=== PATIENT | male | born 1940 | race Caucasian/White ===

== ENCOUNTER → 2016-03-22 | Outpatient (CLI) | payer MEDICARE, OTHER | END | disposition home or self-care (01) | LOC: LAB 10:00 | PROVIDERS: ATTEND Urology | DX: C61 Malignant neoplasm of prostate (principal); R31.9 Hematuria, unspecified | CPT/HCPCS: 84153 ==

== ENCOUNTER → 2016-04-05 | Outpatient (CLI) | payer MEDICARE, OTHER | END | disposition home or self-care (01) | LOC: XYW 09:41 | PROVIDERS: ATTEND Internal Medicine | DX: I34.2 Nonrheumatic mitral (valve) stenosis (principal); I35.0 Nonrheumatic aortic (valve) stenosis; I37.1 Nonrheumatic pulmonary valve insufficiency; I07.1 Rheumatic tricuspid insufficiency; I35.1 Nonrheumatic aortic (valve) insufficiency | CPT/HCPCS: 93306 ==

== ENCOUNTER → 2016-04-26 | Outpatient (CLI) | payer MEDICARE, OTHER ==
[2016-04-26 12:31] LABS: Basophils # (auto) 0 uL; Basophils % (auto) 0.5 % (0.0-2.0); Eosinophils # (auto) 0.3 uL; Eosinophils % (auto) 3.1 % (0.0-7.0); Hemoglobin 13.7 g/dL (13.5-17.5); Lymphocytes # (auto) 3.1 uL; Lymphocytes % (auto) 37.3 % (10.0-50.0); Mean Corpuscular Hemoglobin 27.4 pg (28.0-32.0); Mean Corpuscular Hgb Conc. 31.2 g/dL (32.0-36.0); Mean Corpuscular Volume 87.7 fL (80.0-100.0); Mean Platelet Volume 7.6 fL (7.4-10.4); Monocytes # (auto) 0.6 uL; Monocytes % (auto) 7.2 % (0.0-12.0); Neutrophils # (auto) 4.4 uL; Neutrophils % (auto) 51.9 % (37.0-80.0); Platelet Count (auto) 362 10^3/uL (140-450); Red Cell Distribution Width 14.7 % (11.6-16.0); White Blood Cell 8.4 10^3/uL (4.4-10.8)
[2016-04-26 12:38] LABS: INR 1.03 (0.9-1.15); Prothrombin Time 10.6 sec (9.37-12.3)
[2016-04-26 13:41] LABS: Albumin 3.6 g/dL (3.4-5.0); BUN/Creatinine Ratio 13.5; Bilirubin, Total 0.8 mg/dL (0.2-1.0); Potassium 4.6 mmol/L (3.5-5.1); Total Protein 7.5 g/dL (6.4-8.2)
== END | disposition home or self-care (01) ==
LOC: LAB 10:58
PROVIDERS: ATTEND Internal Medicine Cardiovascular Disease
DX: Z01.812 Encounter for preprocedural laboratory examination (principal); I20.9 Angina pectoris, unspecified
CPT/HCPCS: 36415; 80053; 85025; 85610; 85730

== ENCOUNTER 2016-05-03 11:44 | Day surgery (SDC) | payer MEDICARE, OTHER ==
[2016-05-03] MEDS ORDERED: fentaNYL CITRATE 100 MCG/2 ML VL ONE (12:37)
[2016-05-03] MEDS ORDERED: MIDAZOLAM HCL 1MG/1ML-2 ML VIAL ONE (12:37)
[2016-05-03] MEDS ORDERED: ANGIOMAX 250 MG VIAL IV ONE (12:38)
[2016-05-03] MEDS ORDERED: SODIUM CHL 0.9% 0 ML ONE (12:38)
[2016-05-03] MEDS ORDERED: IODIXANOL 320MG/ML 100ML BTL IV ONE (12:44)
[2016-05-03] MEDS ORDERED: LIDOCAINE 2%HCL (LOCAL ANESTH.) INJ 20ML MDV ONE (12:44)
[2016-05-03] MEDS ORDERED: ASPI325T4 PO ×2 (14:33)
[2016-05-03] MEDS ORDERED: GLIP-115 PO ×2 (14:34)
[2016-05-03] MEDS ORDERED: OXYB10TA13 PO (14:34)
[2016-05-03] MEDS ORDERED: NIAC500C3 OR (14:37)
[2016-05-03] MEDS ORDERED: PRAV20TA3 PO ×2 (14:39)
[2016-05-03] MEDS ORDERED: NITROGLYCERIN 0.4 MG SL TAB SL ONE (14:44)
[2016-05-03] MEDS ORDERED: INSUINJ IJ (14:52)
[2016-05-03] MEDS ORDERED: METF-312 PO (14:56)
[2016-05-03] MEDS ORDERED: NITR400A5 TL ×2 (15:32)
[2016-05-03] MEDS ORDERED: NITR0.2D12 TD ×2 (15:33)
[2016-05-19] MEDS ORDERED: METO-169 PO (10:26)
== END 2016-05-03 16:18 | disposition home or self-care (01) ==
LOC: CATH 11:44
PROVIDERS: ATTEND Internal Medicine Cardiovascular Disease
DX: I25.10 Atherosclerotic heart disease of native coronary artery without angina pectoris (principal); I70.90 Unspecified atherosclerosis; I77.1 Stricture of artery
CPT/HCPCS: 36600; 82805; 93458; 93886; C1760; C1894; J1644; J2250; J3010; J7030; Q9967; 99152

== ENCOUNTER → 2016-05-19 | Outpatient (CLI) | payer MEDICARE, OTHER ==
[~2016-05-19] MED LIST: ASPI325T4 PO; GLIP-115 PO; INSUINJ IJ; METO-169 PO; NIAC500C3 OR; NITR0.2D12 TD; NITR400A5 TL; OXYB10TA13 PO; PRAV20TA3 PO
[2016-05-19 10:45] LABS: Urine RBC None Seen /hpf (0 - 3)
[2016-05-19 10:59] LABS: Basophils # (auto) 0 uL; Basophils % (auto) 0.6 % (0.0-2.0); Eosinophils # (auto) 0.2 uL; Eosinophils % (auto) 2.7 % (0.0-7.0); Hematocrit 41.4 % (41.0-53.0); Hemoglobin 13.8 g/dL (13.5-17.5); Lymphocytes # (auto) 2.2 uL; Lymphocytes % (auto) 33.3 % (10.0-50.0); Mean Corpuscular Hemoglobin 28.6 pg (28.0-32.0); Mean Corpuscular Hgb Conc. 33.3 g/dL (32.0-36.0); Mean Platelet Volume 8.1 fL (7.4-10.4); Monocytes # (auto) 0.6 uL; Monocytes % (auto) 9.3 % (0.0-12.0); Neutrophils # (auto) 3.7 uL; Neutrophils % (auto) 54.1 % (37.0-80.0); Platelet Count (auto) 322 10^3/uL (140-450); White Blood Cell 6.8 10^3/uL (4.4-10.8)
[2016-05-19 11:06] LABS: INR 1.03 (0.9-1.15); Partial Thromboplastin Time 25.4 sec (22.64-33.71); Prothrombin Time 10.6 sec (9.37-12.3)
[2016-05-19 11:09] LABS: Urine Bilirubin Negative (Negative); Urine Blood Negative /uL (Negative); Urine Color Yellow (Yellow); Urine Glucose Normal (Normal); Urine Hyaline Cast FEW /lpf (0 - 2); Urine Ketone Negative (Negative); Urine Mucus FEW (None Seen); Urine Nitrite Negative (Negative); Urine pH 7.5 (5.0-8.0)
[2016-05-19 11:19] LABS: Albumin 3.4 g/dL (3.4-5.0); BUN/Creatinine Ratio 10.5; Bilirubin, Total 1.2 mg/dL (0.2-1.0); Calcium 9.5 mg/dL (8.5-10.1); Potassium 4.4 mmol/L (3.5-5.1); Total Protein 7.2 g/dL (6.4-8.2)
== END | disposition home or self-care (01) ==
LOC: LAB 10:28
PROVIDERS: ATTEND Specialist
DX: I25.10 Atherosclerotic heart disease of native coronary artery without angina pectoris (principal); Z01.810 Encounter for preprocedural cardiovascular examination
CPT/HCPCS: 80053; 81001; 85025; 85610; 85730; 86850; 86900; 86901; 86920

== ENCOUNTER 2016-05-22 06:16 | Inpatient (IN) | payer MEDICARE, OTHER ==
[~2016-05-22] VITALS: Ht 188 cm; Wt 108.5 kg
[2016-05-22] VITALS (37 sets, daily range): BP systolic 29–133; BP diastolic 14–64
[~2016-05-22 06:16] MED LIST changes: -OXYB10TA13 PO
[2016-05-22] MEDS ORDERED: CALCIUM CHLOR(10%) 100MG/ML 10ML SYRINGE IV ONE ×2 (06:31→17:34)
[2016-05-22] MEDS ORDERED: ePHEDrine SULFATE 50 MG/ML AMP ONE (06:43)
[2016-05-22] MEDS ORDERED: PHENYLEPHRINE IV 250 ML IV ONE ×2 (06:44→10:19)
[2016-05-22] MEDS ORDERED: EPINEPHrine HCL 250 ML IV ONE ×2 (06:44→10:27)
[2016-05-22] MEDS ORDERED: VASOPRESSIN IV ONE (06:48)
[2016-05-22] MEDS ORDERED: PAPAVERINE HCL 60 MG/2 ML 2ML VIAL ONE (06:49)
[2016-05-22] MEDS ORDERED: ceFAZolin 1GM VL ONE ×3 (06:49→07:08)
[2016-05-22] MEDS ORDERED: HEPARIN 1,000 UNITS/ml 1ML VIAL ONE (06:50)
[2016-05-22] MEDS ORDERED: NITROGLYCERIN 50MG/250ML 250 ML IV ONE ×2 (06:53→10:26)
[2016-05-22] MEDS ORDERED: HYDROmorphone HCL 2 MG/ML VL ONE ×2 (06:56→09:17)
[2016-05-22] MEDS ORDERED: ROCURONIUM 10MG/ML 10ML VIAL IV ONE ×2 (06:56→09:18)
[2016-05-22] MEDS ORDERED: MIDAZOLAM HCL 1MG/1ML-2 ML VIAL ONE ×2 (06:56→10:47)
[2016-05-22] MEDS ORDERED: ETOMIDATE (2MG/ML) 20ML VIAL IV ONE (07:01)
[2016-05-22] MEDS ORDERED: SODIUM BICARBONATE 8.4 % INJ 50ML VIAL IV ONE ×2 (07:03→17:34)
[2016-05-22] MEDS ORDERED: LIDOCAINE 2%HCL (LOCAL ANESTH.) INJ 20ML MDV ONE (07:03)
[2016-05-22] MEDS ORDERED: DESMOPRESSIN ACET 4 MCG/1 ML AMPULE ONE ×2 (07:15→12:11)
[2016-05-22] MEDS ORDERED: SUCCINYLCHOLINE CHLORIDE 20 MG/ML 10ML VIAL IV ONE (07:15)
[2016-05-22] MEDS ORDERED: VANCOMYCIN HCL 1000 MG VL ONE (07:27)
[2016-05-22] MEDS ORDERED: ceFAZolin 1GM/50ML D5W 100 ML IV ONE (07:27)
[2016-05-22] MEDS ORDERED: ALBUMIN 25% 400 ML IV ONE (07:34)
[2016-05-22] MEDS ORDERED: PLASMA-LYTE A pH7.4 6,000 ML INJ ONE (07:51)
[2016-05-22] MEDS ORDERED: AMINOCAPROIC ACID 10 GM in SODIUM CHL 0.9% 100 ML IV ONE (08:30)
[2016-05-22] MEDS ORDERED: AMINOCAPROIC ACID 5 GM in SODIUM CHL 0.9% 250 ML IV ONE (08:30)
[2016-05-22] MEDS ORDERED: InsuLIN R (HUMAN) 100 UNITS in SODIUM CHL 0.9% 99 ML IV ONE (08:30)
[2016-05-22] MEDS ORDERED: HEPARIN 30000 UNITS in SODIUM CHLORIDE 0.9% 1000 ML IV ONE (08:30)
[2016-05-22] MEDS ORDERED: AMIODARONE HCL (50 MG/ ML) 3 ML VIAL IV ONE ×2 (10:15→10:19)
[2016-05-22] MEDS ORDERED: MILRINONE 20 ML ONE (10:15)
[2016-05-22] MEDS ORDERED: ALBUMIN 5% 750 ML IV ONE (10:16)
[2016-05-22] MEDS ORDERED: PROTAMINE SULFATE 250 MG/25 ML VL IV ONE (10:16)
[2016-05-22] MEDS ORDERED: MAGNESIUM SULFATE 1GM/100ML 200 ML IV ONE (10:20)
[2016-05-22] MEDS ORDERED: POTASSIUM CHL 20MEQ/100ML 200 ML IV ONE (10:20)
[2016-05-22] MEDS ORDERED: VASOPRESSIN 20 UNIT/ML ONE (10:20)
[2016-05-22] MEDS ORDERED: SODIUM BICARBONATE 8.4% INJ 50ML SYRINGE ONE (10:20)
[2016-05-22] MEDS ORDERED: NOREPINEPHRINE BITARTRATE 250 ML IV ONE ×2 (10:20→14:32)
[2016-05-22] MEDS ORDERED: DOBUTamine 1000MCG/ML 250 ML IV ONE (10:25)
[2016-05-22] MEDS ORDERED: DOPamine 1600MCG/ML 250 ML IV ONE (10:25)
[2016-05-22] MEDS ORDERED: PROPOFOL 100 ML IV ONE (10:25)
[2016-05-22] MEDS ORDERED: NICARDIPINE 25MG/250ML BAG KIT 250 ML IV ONE (10:26)
[2016-05-22] MEDS ORDERED: NEOMYCIN-BACITRACIN-POLYM 15GM TOP OINT TOP ONE (11:04)
[2016-05-22] MEDS ORDERED: NOREPINEPHRINE BITARTRATE 250 ML IV SCH (15:59)
[2016-05-22] MEDS: NICARDIPINE 25MG/250ML BAG KIT 250 ML IV SCH ×2 (15:59→20:59)
[2016-05-22] MEDS ORDERED: NITROGLYCERIN 50MG/250ML 250 ML IV SCH (15:59)
[2016-05-22] MEDS: MILRINONE 20MG/100ML 100 ML IV SCH (15:59)
[2016-05-22] MEDS ORDERED: PHENYLEPHRINE IV 250 ML IV SCH (15:59)
[2016-05-22] MEDS ORDERED: INSULIN DRIP 100 UNIT/100ML 100 ML IV SCH (15:59)
[2016-05-22] MEDS ORDERED: SODIUM CHLORIDE 0.9% 200 ML IV PRN (15:59)
[2016-05-22] MEDS ORDERED: SODIUM BICARBONATE 8.4% INJ 50ML SYRINGE IV PRN (16:00)
[2016-05-22] MEDS ORDERED: ONDANSETRON HCL 4 MG/2 ML VIAL IV PRN (16:00)
[2016-05-22] MEDS ORDERED: AMIODARONE HCL 150 MG in D5W 5% 100 ML IV ONE (16:00)
[2016-05-22] MEDS ORDERED: MORPHINE SULFATE 4 MG/ML SYRG IV PRN (16:00)
[2016-05-22] MEDS ORDERED: DEXTROSE (50%) 50ML SYRG IV PRN (16:00)
[2016-05-22] MEDS ORDERED: MAGNESIUM SULFATE 1GM/100ML 100 ML IV PRN (16:00)
[2016-05-22] MEDS ORDERED: POTASSIUM CHL 20MEQ/100ML 100 ML IV PRN (16:00)
[2016-05-22] MEDS ORDERED: AMIODARONE HCL 900 MG in DEXTROSE 500 ML IV SCH (16:09)
[2016-05-22] MEDS ORDERED: fentaNYL CITRATE 100 MCG/2 ML VL ONE (16:41)
[2016-05-22] MEDS: PROPOFOL 100 ML IV SCH ×2 (16:52→21:30)
[2016-05-22] MEDS: SODIUM CHLORIDE 0.9% 500 ML IV SCH (17:00)
[2016-05-22] MEDS: ACCU-CHEK COMFORT CURVE STRIP VI SCH ×8 (17:00→23:59)
[2016-05-22] MEDS: SODIUM CHLORIDE 0.9% 1,000 ML IV SCH (17:00)
[2016-05-22 17:32] LABS: Basophils # (auto) 0 uL; Basophils % (auto) 0.1 % (0.0-2.0); Eosinophils # (auto) 0 uL; Eosinophils % (auto) 0.2 % (0.0-7.0); Hematocrit 34.7 % (41.0-53.0); Hemoglobin 11.5 g/dL (13.5-17.5); Lymphocytes # (auto) 0.7 uL; Lymphocytes % (auto) 4.4 % (10.0-50.0); Mean Corpuscular Hemoglobin 28.6 pg (28.0-32.0); Mean Corpuscular Volume 86.5 fL (80.0-100.0); Mean Platelet Volume 7.7 fL (7.4-10.4); Monocytes # (auto) 0.7 uL; Monocytes % (auto) 4.4 % (0.0-12.0); Neutrophils # (auto) 13.4 uL; Neutrophils % (auto) 90.9 % (37.0-80.0); Platelet Count (auto) 259 10^3/uL (140-450); Red Cell Distribution Width 14.6 % (11.6-16.0); White Blood Cell 14.8 10^3/uL (4.4-10.8)
[2016-05-22] MEDS ORDERED: MAGNESIUM SULF 50% 40 MEQ/10 ML VL IV ONE (17:34)
[2016-05-22] MEDS ORDERED: AMINOCAPROIC ACID 5 GM/20 ML VL IV ONE (17:34)
[2016-05-22] MEDS ORDERED: MANNITOL 20% SOLN 100 gm/500ml BAG IV ONE (17:34)
[2016-05-22] MEDS ORDERED: PHENYLEPHRINE HCL 10 MG/ML VL IV ONE (17:34)
[2016-05-22] MEDS ORDERED: POTASSIUM CHL 2MEQ/ML 20ML IV ONE (17:34)
[2016-05-22] MEDS ORDERED: LIDOCAINE HCL 100 MG/5ML (2%) SYRG INJ IV ONE (17:34)
[2016-05-22] MEDS ORDERED: DEXAMETHASONE SODIUM PHOSP 120 MG/30ml VIAL IV ONE (17:34)
[2016-05-22] MEDS ORDERED: ADENOSINE 6 MG/2 ML INJ IV ONE (17:34)
[2016-05-22 17:59] LABS: Albumin 3.7 g/dL (3.4-5.0); BUN/Creatinine Ratio 11.3; Calcium 8.2 mg/dL (8.5-10.1); Magnesium 3.1 mg/dL (1.6-2.6); Potassium 3.9 mmol/L (3.5-5.1)
[2016-05-22] MEDS: ALBUMIN 5% 250 ML IV PRN ×2 (18:00→19:37)
[2016-05-22] MEDS: ceFAZolin 1GM 2 GM in D5W 5% 100 ML IV SCH (18:00)
[2016-05-22] MEDS: ACETAMINOPHEN IV 100 ML IV SCH ×2 (18:00→23:57)
[2016-05-22 18:01] LABS: Bilirubin, Total 1.9 mg/dL (0.2-1.0); Total Protein 6.1 g/dL (6.4-8.2)
[2016-05-22 18:46] LABS: Partial Thromboplastin Time 32.7 sec (22.64-33.71)
[2016-05-22] MEDS: PHENYLEPHRINE IV 250 ML IV SCH ×2 (18:48→22:53)
[2016-05-22] MEDS: VANCOMYCIN 1GM/250ML D5W 250 ML IV SCH (18:57)
[2016-05-22 19:05] LABS: INR 1.2 (0.9-1.15); Prothrombin Time 12.4 sec (9.37-12.3)
[2016-05-22] MEDS: AMIODARONE HCL 900 MG in DEXTROSE 500 ML IV SCH (22:09)
[2016-05-22] MEDS: CHLORHEXIDINE 0.12% ORAL rinse 473ML MT SCH (22:23)
[2016-05-22 22:37] LABS: Basophils # (auto) 0 uL; Eosinophils # (auto) 0 uL; Eosinophils % (auto) 0.1 % (0.0-7.0); Hematocrit 31.4 % (41.0-53.0); Hemoglobin 10.5 g/dL (13.5-17.5); Lymphocytes # (auto) 0.9 uL; Lymphocytes % (auto) 7.2 % (10.0-50.0); Mean Corpuscular Hemoglobin 28.8 pg (28.0-32.0); Mean Corpuscular Hgb Conc. 33.4 g/dL (32.0-36.0); Mean Corpuscular Volume 86.3 fL (80.0-100.0); Mean Platelet Volume 8.1 fL (7.4-10.4); Monocytes # (auto) 0.6 uL; Monocytes % (auto) 4.6 % (0.0-12.0); Neutrophils # (auto) 11.4 uL; Neutrophils % (auto) 88.1 % (37.0-80.0); Platelet Count (auto) 234 10^3/uL (140-450); Red Cell Distribution Width 14.8 % (11.6-16.0); White Blood Cell 12.9 10^3/uL (4.4-10.8)
[2016-05-22 22:48] LABS: Calcium 7.9 mg/dL (8.5-10.1); Magnesium 2.8 mg/dL (1.6-2.6); Potassium 4.6 mmol/L (3.5-5.1)
[2016-05-23] VITALS (99 sets, daily range): BP systolic 24–167; BP diastolic 11–167
[2016-05-23] MEDS: ceFAZolin 1GM 2 GM in D5W 5% 100 ML IV SCH ×3 (00:13→16:13)
[2016-05-23] MEDS: ACCU-CHEK COMFORT CURVE STRIP VI SCH ×14 (01:00→14:08)
[2016-05-23] MEDS: MILRINONE 20MG/100ML 100 ML IV SCH ×2 (01:06→10:13)
[2016-05-23] MEDS: NICARDIPINE 25MG/250ML BAG KIT 250 ML IV SCH ×3 (01:59→11:59)
[2016-05-23] MEDS: SODIUM CHLORIDE 0.9% 1,000 ML IV SCH ×3 (04:00→13:00)
[2016-05-23 05:00] LABS: Basophils # (auto) 0 uL; Eosinophils # (auto) 0 uL; Hematocrit 29.5 % (41.0-53.0); Hemoglobin 9.7 g/dL (13.5-17.5); Lymphocytes # (auto) 1.2 uL; Lymphocytes % (auto) 9.1 % (10.0-50.0); Mean Corpuscular Hemoglobin 28.8 pg (28.0-32.0); Mean Corpuscular Volume 87.3 fL (80.0-100.0); Mean Platelet Volume 8.2 fL (7.4-10.4); Monocytes # (auto) 0.7 uL; Monocytes % (auto) 5.9 % (0.0-12.0); Neutrophils # (auto) 10.7 uL; Platelet Count (auto) 220 10^3/uL (140-450); Red Cell Distribution Width 15.1 % (11.6-16.0); White Blood Cell 12.6 10^3/uL (4.4-10.8)
[2016-05-23] MEDS: PHENYLEPHRINE IV 250 ML IV SCH ×3 (05:15→12:47)
[2016-05-23] MEDS: PROPOFOL 100 ML IV SCH ×2 (05:15→09:30)
[2016-05-23 05:35] LABS: BUN/Creatinine Ratio 17.2; Calcium 7.8 mg/dL (8.5-10.1); Magnesium 2.7 mg/dL (1.6-2.6)
[2016-05-23] MEDS: ACETAMINOPHEN IV 100 ML IV SCH ×2 (06:05→11:27)
[2016-05-23] MEDS: MORPHINE SULFATE 4 MG/ML SYRG IV PRN ×5 (06:32→21:34)
[2016-05-23] MEDS: VANCOMYCIN 1GM/250ML D5W 250 ML IV SCH ×2 (06:48→18:16)
[2016-05-23] MEDS ORDERED: CALCIUM GLUC 4.65 MEQ/10ML 4.65 MEQ in SODIUM CHL 0.9% 50 ML IV ONE (07:00)
[2016-05-23 09:41] LABS: Phosphorus 2.3 mg/dL (2.5-4.90)
[2016-05-23] MEDS: CHLORHEXIDINE 0.12% ORAL rinse 473ML MT SCH ×2 (09:49→22:00)
[2016-05-23] MEDS ORDERED: PANTOPRAZOLE SODIUM 40 MG/10 ML VIAL IV SCH (10:00)
[2016-05-23] MEDS ORDERED: ALBUMIN 25% 50 ML IV ONE ×3 (11:36→22:00)
[2016-05-23] MEDS ORDERED: POTASSIUM CHL 20MEQ/100ML 100 ML IV PRN (11:45)
[2016-05-23] MEDS ORDERED: MORPHINE SULF INJ 2 MG/ML SYRINGE 1ML IV PRN (11:45)
[2016-05-23] MEDS ORDERED: POTASSIUM CHL 10% (20 MEQ/15ML) ORAL SOLN PO PRN (11:45)
[2016-05-23] MEDS ORDERED: DEXTROSE (50%) 50ML SYRG IV PRN (11:45)
[2016-05-23] MEDS ORDERED: SENNA 8.6 MG TAB PO PRN (11:45)
[2016-05-23] MEDS ORDERED: ALBUMIN 5% 250 ML IV ONE (11:45)
[2016-05-23 11:51] LABS: Basophils # (auto) 0 uL; Basophils % (auto) 0.2 % (0.0-2.0); Eosinophils # (auto) 0 uL; Hematocrit 29.2 % (41.0-53.0); Hemoglobin 9.6 g/dL (13.5-17.5); Lymphocytes # (auto) 1.3 uL; Lymphocytes % (auto) 11.8 % (10.0-50.0); Mean Corpuscular Hemoglobin 28.6 pg (28.0-32.0); Mean Corpuscular Hgb Conc. 32.9 g/dL (32.0-36.0); Mean Corpuscular Volume 87.1 fL (80.0-100.0); Mean Platelet Volume 8.4 fL (7.4-10.4); Monocytes # (auto) 1.1 uL; Monocytes % (auto) 10.5 % (0.0-12.0); Neutrophils # (auto) 8.3 uL; Neutrophils % (auto) 77.5 % (37.0-80.0); Platelet Count (auto) 192 10^3/uL (140-450); Red Cell Distribution Width 15.3 % (11.6-16.0); White Blood Cell 10.7 10^3/uL (4.4-10.8)
[2016-05-23] MEDS ORDERED: PROPRANOLOL HCL 1 MG/ML VIAL IV PRN (12:00)
[2016-05-23] MEDS: Boost Glucose Control 8 Ounces PO SCH ×2 (12:00→18:00)
[2016-05-23] MEDS ORDERED: fentaNYL CITRATE 100 MCG/2 ML VL IV PRN (12:30)
[2016-05-23] MEDS ORDERED: INSLISPI SC (13:20)
[2016-05-23 13:22] LABS: Albumin 3.6 g/dL (3.4-5.0); BUN/Creatinine Ratio 18.5; Calcium 8.3 mg/dL (8.5-10.1); Magnesium 2.6 mg/dL (1.6-2.6); Phosphorus 3.5 mg/dL (2.5-4.90); Potassium 4.6 mmol/L (3.5-5.1); Total Protein 5.9 g/dL (6.4-8.2)
[2016-05-23] MEDS ORDERED: LISI-646 PO (13:31)
[2016-05-23] MEDS ORDERED: OXYB15TA12 PO (13:31)
[2016-05-23] MEDS ORDERED: METF-316 PO (13:31)
[2016-05-23] MEDS ORDERED: OXYB10TA13 PO (13:32)
[2016-05-23] MEDS ORDERED: METO25TA5 PO (13:33)
[2016-05-23] MEDS ORDERED: NIAC500C3 PO (13:34)
[2016-05-23] MEDS: InsuLIN REG 1unit/0.01ml Soln (100units/ml) SC SCH ×3 (14:09→21:46)
[2016-05-23] MEDS: METOCLOPRAMIDE HCL 5MG/ml INJ 2ml VIAL IV PRN (15:08)
[2016-05-23] MEDS: SODIUM CHLORIDE 0.9% 500 ML IV SCH (16:13)
[2016-05-23 16:19] LABS: Potassium 4.6 mmol/L (3.5-5.1)
[2016-05-23 16:21] LABS: Magnesium 2.6 mg/dL (1.6-2.6)
[2016-05-23] MEDS ORDERED: glipiZIDE 5 MG TAB PO SCH (18:00)
[2016-05-23] MEDS ORDERED: FUROSEMIDE 20 MG/2 ML VIAL IV PRN (18:15)
[2016-05-23] MEDS: FUROSEMIDE 40 MG TAB PO SCH (18:17)
[2016-05-23] MEDS: IPRATROPIUM BROM 0.5 MG/2.5ML INH SOL NEB SCH ×3 (18:47→22:14)
[2016-05-23] MEDS: HYDROcodone-ACET 7.5/325MG TAB PO PRN (20:50)
[2016-05-23 21:03] LABS: Basophils # (auto) 0 uL; Basophils % (auto) 0.2 % (0.0-2.0); Eosinophils # (auto) 0 uL; Hematocrit 28.6 % (41.0-53.0); Hemoglobin 9.4 g/dL (13.5-17.5); Lymphocytes # (auto) 1.4 uL; Lymphocytes % (auto) 12.7 % (10.0-50.0); Mean Corpuscular Hemoglobin 28.7 pg (28.0-32.0); Mean Corpuscular Hgb Conc. 32.7 g/dL (32.0-36.0); Mean Corpuscular Volume 87.7 fL (80.0-100.0); Mean Platelet Volume 8.4 fL (7.4-10.4); Monocytes # (auto) 0.8 uL; Monocytes % (auto) 7.3 % (0.0-12.0); Neutrophils # (auto) 8.5 uL; Neutrophils % (auto) 79.8 % (37.0-80.0); Platelet Count (auto) 187 10^3/uL (140-450); White Blood Cell 10.6 10^3/uL (4.4-10.8)
[2016-05-23 21:12] LABS: Albumin 3.7 g/dL (3.4-5.0); Calcium 7.9 mg/dL (8.5-10.1); Magnesium 2.4 mg/dL (1.6-2.6); Potassium 4.8 mmol/L (3.5-5.1)
[2016-05-23 21:14] LABS: BUN/Creatinine Ratio 19.3
[2016-05-23 21:16] LABS: Phosphorus 3.4 mg/dL (2.5-4.90); Total Protein 5.9 g/dL (6.4-8.2)
[2016-05-23] MEDS: ASCORBIC ACID 500 MG TAB PO SCH (21:34)
[2016-05-23] MEDS: DOCUSATE SOD 100 MG CAP PO SCH (21:35)
[2016-05-23] MEDS: ATORVASTATIN 20 MG TAB PO SCH (21:35)
[2016-05-23] MEDS ORDERED: METOPROLOL TARTRATE 25 MG TAB PO SCH ×2 (22:00)
[2016-05-23] MEDS: AMIODARONE HCL 900 MG in DEXTROSE 500 ML IV SCH (22:09)
[2016-05-24] VITALS (96 sets, daily range): BP systolic 83–139; BP diastolic 41–96
[2016-05-24] MEDS: ceFAZolin 1GM 2 GM in D5W 5% 100 ML IV SCH ×2 (00:04→09:00)
[2016-05-24] MEDS: MORPHINE SULFATE 4 MG/ML SYRG IV PRN (01:06)
[2016-05-24] MEDS: IPRATROPIUM BROM 0.5 MG/2.5ML INH SOL NEB SCH ×6 (02:00→22:07)
[2016-05-24] MEDS: InsuLIN REG 1unit/0.01ml Soln (100units/ml) SC SCH ×7 (02:31→23:15)
[2016-05-24] MEDS: HYDROcodone-ACET 7.5/325MG TAB PO PRN ×2 (02:49→23:40)
[2016-05-24] MEDS: SODIUM CHLORIDE 0.9% 1,000 ML IV SCH ×2 (05:19→16:00)
[2016-05-24 05:59] LABS: Basophils # (auto) 0 uL; Basophils % (auto) 0.1 % (0.0-2.0); Eosinophils # (auto) 0 uL; Hematocrit 27.3 % (41.0-53.0); Hemoglobin 8.9 g/dL (13.5-17.5); Lymphocytes # (auto) 1.8 uL; Lymphocytes % (auto) 15.5 % (10.0-50.0); Mean Corpuscular Hemoglobin 28.6 pg (28.0-32.0); Mean Corpuscular Hgb Conc. 32.6 g/dL (32.0-36.0); Mean Corpuscular Volume 87.5 fL (80.0-100.0); Mean Platelet Volume 8.6 fL (7.4-10.4); Monocytes % (auto) 8.5 % (0.0-12.0); Neutrophils # (auto) 8.8 uL; Neutrophils % (auto) 75.9 % (37.0-80.0); Platelet Count (auto) 172 10^3/uL (140-450); White Blood Cell 11.6 10^3/uL (4.4-10.8)
[2016-05-24] MEDS: FUROSEMIDE 40 MG TAB PO SCH ×2 (06:00→18:00)
[2016-05-24 06:20] LABS: Albumin 3.6 g/dL (3.4-5.0); Calcium 7.7 mg/dL (8.5-10.1); Magnesium 2.6 mg/dL (1.6-2.6); Potassium 5.2 mmol/L (3.5-5.1); Total Protein 5.9 g/dL (6.4-8.2)
[2016-05-24] MEDS: VANCOMYCIN 1GM/250ML D5W 250 ML IV SCH (06:52)
[2016-05-24] MEDS: Boost Glucose Control 8 Ounces PO SCH ×3 (10:07→18:00)
[2016-05-24] MEDS: ASCORBIC ACID 500 MG TAB PO SCH ×2 (10:08→23:00)
[2016-05-24] MEDS: POTASSIUM CHL 20 Meq TABLET PO SCH (10:08)
[2016-05-24] MEDS: CHLORHEXIDINE 0.12% ORAL rinse 473ML MT SCH ×2 (10:08→22:00)
[2016-05-24] MEDS: DOCUSATE SOD 100 MG CAP PO SCH ×2 (10:08→22:00)
[2016-05-24] MEDS: PANTOPRAZOLE SODIUM 40 MG/10 ML VIAL IV SCH (10:08)
[2016-05-24] MEDS: ASPirin 81 mg TAB PO SCH (10:17)
[2016-05-24] MEDS: glipiZIDE 5 MG TAB PO SCH (10:17)
[2016-05-24] MEDS: NITROGLYCERIN 0.4MG/HR TOPICAL PATCH TD SCH (10:18)
[2016-05-24] MEDS ORDERED: CALCIUM GLUC 4.65 MEQ/10ML 4.65 MEQ in SODIUM CHL 0.9% 50 ML IV ONE (12:45)
[2016-05-24] MEDS: ACCU-CHEK COMFORT CURVE STRIP VI SCH ×3 (13:49→20:20)
[2016-05-24] MEDS: AMIODARONE HCL 900 MG in DEXTROSE 500 ML IV SCH (16:30)
[2016-05-24 17:09] LABS: Potassium 5.3 mmol/L (3.5-5.1)
[2016-05-24 17:11] LABS: Magnesium 2.5 mg/dL (1.6-2.6)
[2016-05-24] MEDS: SODIUM CHLORIDE 0.9% 500 ML IV SCH (18:36)
[2016-05-24] MEDS ORDERED: AMIODARONE HCL 150 MG in D5W 5% 100 ML IV ONE (19:00)
[2016-05-24] MEDS ORDERED: AMIODARONE HCL 900 MG in DEXTROSE 500 ML IV SCH (19:00)
[2016-05-24] MEDS: METOCLOPRAMIDE HCL 5MG/ml INJ 2ml VIAL IV PRN (22:54)
[2016-05-24] MEDS: MORPHINE SULF INJ 2 MG/ML SYRINGE 1ML IV PRN (22:57)
[2016-05-24] MEDS: ATORVASTATIN 20 MG TAB PO SCH (23:00)
[2016-05-24] MEDS: INSULIN DETEMIR(LEVEMIR) 1unit/0.01ml Soln (100units/ml) SC SCH (23:00)
[2016-05-25] VITALS (93 sets, daily range): BP systolic 77–122; BP diastolic 53–85
[2016-05-25] MEDS ORDERED: AMIODARONE HCL 900 MG in DEXTROSE 500 ML IV SCH (01:00)
[2016-05-25] MEDS: HYDROcodone-ACET 7.5/325MG TAB PO PRN (04:37)
[2016-05-25] MEDS: FUROSEMIDE 40 MG TAB PO SCH ×2 (04:37→19:00)
[2016-05-25 05:15] LABS: Basophils # (auto) 0 uL; Basophils % (auto) 0.2 % (0.0-2.0); Eosinophils # (auto) 0 uL; Hematocrit 30.9 % (41.0-53.0); Hemoglobin 10.5 g/dL (13.5-17.5); Lymphocytes % (auto) 13.6 % (10.0-50.0); Mean Corpuscular Hemoglobin 28.5 pg (28.0-32.0); Mean Corpuscular Hgb Conc. 33.9 g/dL (32.0-36.0); Mean Corpuscular Volume 84.1 fL (80.0-100.0); Mean Platelet Volume 9.4 fL (7.4-10.4); Neutrophils # (auto) 11.7 uL; Neutrophils % (auto) 79.2 % (37.0-80.0); Platelet Count (auto) 145 10^3/uL (140-450); Red Cell Distribution Width 16.8 % (11.6-16.0); White Blood Cell 14.8 10^3/uL (4.4-10.8)
[2016-05-25 05:30] LABS: Albumin 3.3 g/dL (3.4-5.0); BUN/Creatinine Ratio 36.8; Bilirubin, Total 2.6 mg/dL (0.2-1.0); Calcium 7.6 mg/dL (8.5-10.1); Magnesium 2.6 mg/dL (1.6-2.6); Potassium 4.9 mmol/L (3.5-5.1); Total Protein 5.8 g/dL (6.4-8.2)
[2016-05-25] MEDS: ACCU-CHEK COMFORT CURVE STRIP VI SCH ×7 (05:50→23:39)
[2016-05-25] MEDS: InsuLIN REG 1unit/0.01ml Soln (100units/ml) SC SCH ×6 (05:55→23:41)
[2016-05-25] MEDS: MORPHINE SULF INJ 2 MG/ML SYRINGE 1ML IV PRN (06:14)
[2016-05-25] MEDS: INSULIN DETEMIR(LEVEMIR) 1unit/0.01ml Soln (100units/ml) SC SCH ×2 (06:42→21:29)
[2016-05-25] MEDS ORDERED: CALCIUM GLUC 4.65 MEQ/10ML 4.65 MEQ in SODIUM CHL 0.9% 50 ML IV ONE (06:45)
[2016-05-25] MEDS: IPRATROPIUM BROM 0.5 MG/2.5ML INH SOL NEB SCH ×4 (06:52→22:07)
[2016-05-25] MEDS: SODIUM CHLORIDE 0.9% 1,000 ML IV SCH (07:59)
[2016-05-25] MEDS: Boost Glucose Control 8 Ounces PO SCH ×3 (08:00→18:00)
[2016-05-25] MEDS ORDERED: ceFAZolin 1GM/50ML D5W 50 ML IV ONE (09:30)
[2016-05-25] MEDS ORDERED: VANCOMYCIN 1GM/250ML D5W 250 ML IV ONE (09:30)
[2016-05-25] MEDS ORDERED: VANCOMYCIN HCL 1000 MG VL IR ONE (09:30)
[2016-05-25] MEDS: POTASSIUM CHL 20 Meq TABLET PO SCH (10:00)
[2016-05-25] MEDS: ASCORBIC ACID 500 MG TAB PO SCH ×2 (10:00→21:15)
[2016-05-25] MEDS: DOCUSATE SOD 100 MG CAP PO SCH ×2 (10:00→21:16)
[2016-05-25] MEDS: glipiZIDE 5 MG TAB PO SCH (10:00)
[2016-05-25] MEDS: ASPirin 81 mg TAB PO SCH (10:00)
[2016-05-25] MEDS: CHLORHEXIDINE 0.12% ORAL rinse 473ML MT SCH ×2 (10:00→21:29)
[2016-05-25] MEDS: NITROGLYCERIN 0.4MG/HR TOPICAL PATCH TD SCH (10:00)
[2016-05-25] MEDS ORDERED: LIDOCAINE 2%HCL (LOCAL ANESTH.) INJ 20ML MDV ONE (10:33)
[2016-05-25] MEDS ORDERED: fentaNYL CITRATE 100 MCG/2 ML VL ONE (11:03)
[2016-05-25] MEDS ORDERED: MIDAZOLAM HCL 1MG/1ML-2 ML VIAL ONE (11:04)
[2016-05-25] MEDS ORDERED: GELATIN 1 SPONGE SIZE 100 TOP ONE (11:55)
[2016-05-25] MEDS ORDERED: ALBUMIN 25% 100 ML IV ONE (14:45)
[2016-05-25] MEDS ORDERED: SODIUM CHLORIDE 0.9% 1,000 ML IV SCH (14:45)
[2016-05-25] MEDS: PANTOPRAZOLE SODIUM 40 MG/10 ML VIAL IV SCH (14:57)
[2016-05-25] MEDS: METOCLOPRAMIDE HCL 5MG/ml INJ 2ml VIAL IV PRN ×2 (14:59→23:29)
[2016-05-25] MEDS ORDERED: METOPROLOL SUCCINATE XL 50 MG TAB PO ONE (15:00)
[2016-05-25] MEDS: SODIUM CHLORIDE 0.9% 500 ML IV SCH (16:01)
[2016-05-25] MEDS ORDERED: OXYCODONE W/ ACETAMINOPHEN 5/325MG TABLET PO PRN (19:00)
[2016-05-25] MEDS ORDERED: OXYCODONE HCL 5MG TAB PO PRN (21:00)
[2016-05-25] MEDS ORDERED: OXYCODONE HCL 5MG TAB ONE (21:04)
[2016-05-25] MEDS: ATORVASTATIN 20 MG TAB PO SCH (21:16)
[2016-05-25] MEDS: VANCOMYCIN 1GM/250ML D5W 250 ML IV SCH (21:20)
[2016-05-25] MEDS: OXYCODONE HCL 5MG TAB PO PRN (21:44)
[2016-05-26] VITALS (80 sets, daily range): BP systolic 91–136; BP diastolic 32–81
[2016-05-26] MEDS: OXYCODONE HCL 5MG TAB PO PRN ×2 (01:45→21:38)
[2016-05-26 04:23] LABS: Basophils # (auto) 0 uL; Eosinophils # (auto) 0 uL; Eosinophils % (auto) 0.1 % (0.0-7.0); Hematocrit 30.8 % (41.0-53.0); Hemoglobin 10.3 g/dL (13.5-17.5); Lymphocytes # (auto) 1.7 uL; Lymphocytes % (auto) 10.1 % (10.0-50.0); Mean Corpuscular Hemoglobin 28.6 pg (28.0-32.0); Mean Corpuscular Hgb Conc. 33.4 g/dL (32.0-36.0); Mean Corpuscular Volume 85.6 fL (80.0-100.0); Mean Platelet Volume 9.6 fL (7.4-10.4); Monocytes # (auto) 1.4 uL; Monocytes % (auto) 8.2 % (0.0-12.0); Neutrophils # (auto) 13.7 uL; Neutrophils % (auto) 81.6 % (37.0-80.0); Platelet Count (auto) 119 10^3/uL (140-450); Red Cell Distribution Width 16.3 % (11.6-16.0); White Blood Cell 16.7 10^3/uL (4.4-10.8)
[2016-05-26] MEDS: ACCU-CHEK COMFORT CURVE STRIP VI SCH ×5 (04:30→21:25)
[2016-05-26] MEDS: InsuLIN REG 1unit/0.01ml Soln (100units/ml) SC SCH ×5 (04:36→22:00)
[2016-05-26 04:44] LABS: Albumin 3.3 g/dL (3.4-5.0); BUN/Creatinine Ratio 42.4; Bilirubin, Total 2.8 mg/dL (0.2-1.0); Calcium 7.5 mg/dL (8.5-10.1); Magnesium 2.8 mg/dL (1.6-2.6); Potassium 4.9 mmol/L (3.5-5.1); Total Protein 5.5 g/dL (6.4-8.2)
[2016-05-26] MEDS: FUROSEMIDE 40 MG TAB PO SCH (06:00)
[2016-05-26] MEDS: SODIUM CHLORIDE 0.9% 1,000 ML IV SCH ×2 (06:00→08:37)
[2016-05-26] MEDS: IPRATROPIUM BROM 0.5 MG/2.5ML INH SOL NEB SCH ×5 (06:39→22:37)
[2016-05-26] MEDS: INSULIN DETEMIR(LEVEMIR) 1unit/0.01ml Soln (100units/ml) SC SCH ×2 (06:43→22:13)
[2016-05-26] MEDS: Boost Glucose Control 8 Ounces PO SCH ×3 (08:00→18:00)
[2016-05-26] MEDS ORDERED: CALCIUM GLUC 4.65 MEQ/10ML 4.65 MEQ in SODIUM CHL 0.9% 50 ML IV ONE (08:45)
[2016-05-26] MEDS ORDERED: ALBUMIN 25% 50 ML IV ONE (08:45)
[2016-05-26] MEDS: DOCUSATE SOD 100 MG CAP PO SCH ×2 (09:55→22:00)
[2016-05-26] MEDS: ASPirin 81 mg TAB PO SCH (09:55)
[2016-05-26] MEDS: ASCORBIC ACID 500 MG TAB PO SCH ×2 (09:55→21:37)
[2016-05-26] MEDS: PANTOPRAZOLE SODIUM 40 MG/10 ML VIAL IV SCH (09:56)
[2016-05-26] MEDS: VANCOMYCIN 1GM/250ML D5W 250 ML IV SCH (09:57)
[2016-05-26] MEDS ORDERED: METOPROLOL SUCCINATE XL 50 MG TAB PO SCH (10:00)
[2016-05-26] MEDS: METOPROLOL SUCCINATE XL 50 MG TAB PO SCH (10:00)
[2016-05-26] MEDS: CHLORHEXIDINE 0.12% ORAL rinse 473ML MT SCH ×2 (10:12→22:00)
[2016-05-26] MEDS: NITROGLYCERIN 0.4MG/HR TOPICAL PATCH TD SCH (10:13)
[2016-05-26] MEDS ORDERED: SODIUM CHL 0.9% 50 ML IV ONE (12:30)
[2016-05-26] MEDS ORDERED: glipiZIDE 5 MG TAB PO ONE (13:00)
[2016-05-26] MEDS: METOCLOPRAMIDE HCL 5MG/ml INJ 2ml VIAL IV PRN (13:13)
[2016-05-26] MEDS: glipiZIDE 5 MG TAB PO SCH (17:20)
[2016-05-27] VITALS (41 sets, daily range): BP systolic 94–127; BP diastolic 54–77
[2016-05-27] MEDS: ACCU-CHEK COMFORT CURVE STRIP VI SCH ×7 (00:17→23:32)
[2016-05-27] MEDS: InsuLIN REG 1unit/0.01ml Soln (100units/ml) SC SCH ×7 (00:20→23:33)
[2016-05-27] MEDS: diphenhdrAMINE HCL 25 MG CAP PO PRN ×2 (00:23→21:32)
[2016-05-27] MEDS: OXYCODONE HCL 5MG TAB PO PRN ×3 (04:16→18:54)
[2016-05-27 04:37] LABS: Basophils # (auto) 0 uL; Basophils % (auto) 0.1 % (0.0-2.0); Eosinophils # (auto) 0 uL; Eosinophils % (auto) 0.3 % (0.0-7.0); Hematocrit 29.2 % (41.0-53.0); Hemoglobin 9.7 g/dL (13.5-17.5); Lymphocytes % (auto) 13.2 % (10.0-50.0); Mean Corpuscular Hemoglobin 28.4 pg (28.0-32.0); Mean Corpuscular Hgb Conc. 33.2 g/dL (32.0-36.0); Mean Corpuscular Volume 85.7 fL (80.0-100.0); Mean Platelet Volume 9.3 fL (7.4-10.4); Monocytes # (auto) 1.3 uL; Monocytes % (auto) 8.7 % (0.0-12.0); Neutrophils # (auto) 11.7 uL; Neutrophils % (auto) 77.7 % (37.0-80.0); Nucleated Red Blood Cells % 2.6 %; Platelet Count (auto) 129 10^3/uL (140-450); Red Cell Distribution Width 16.1 % (11.6-16.0)
[2016-05-27 04:55] LABS: Calcium 7.3 mg/dL (8.5-10.1); Potassium 4.3 mmol/L (3.5-5.1)
[2016-05-27 04:58] LABS: Bilirubin, Total 2.8 mg/dL (0.2-1.0); Total Protein 5.4 g/dL (6.4-8.2)
[2016-05-27] MEDS: glipiZIDE 5 MG TAB PO SCH ×2 (06:22→17:33)
[2016-05-27] MEDS: Boost Glucose Control 8 Ounces PO SCH ×3 (06:23→17:33)
[2016-05-27] MEDS: INSULIN DETEMIR(LEVEMIR) 1unit/0.01ml Soln (100units/ml) SC SCH ×2 (06:51→21:52)
[2016-05-27] MEDS: METOCLOPRAMIDE HCL 5MG/ml INJ 2ml VIAL IV PRN ×3 (06:56→23:31)
[2016-05-27] MEDS: IPRATROPIUM BROM 0.5 MG/2.5ML INH SOL NEB SCH ×5 (07:30→22:34)
[2016-05-27] MEDS: DOCUSATE SOD 100 MG CAP PO SCH ×2 (09:51→21:32)
[2016-05-27] MEDS: PANTOPRAZOLE SODIUM 40 MG/10 ML VIAL IV SCH (09:51)
[2016-05-27] MEDS: NITROGLYCERIN 0.4MG/HR TOPICAL PATCH TD SCH (09:51)
[2016-05-27] MEDS: ASPirin 81 mg TAB PO SCH (09:51)
[2016-05-27] MEDS: CHLORHEXIDINE 0.12% ORAL rinse 473ML MT SCH ×2 (09:52→21:33)
[2016-05-27] MEDS: ASCORBIC ACID 500 MG TAB PO SCH ×2 (09:52→21:32)
[2016-05-27] MEDS: METOPROLOL SUCCINATE XL 50 MG TAB PO SCH (09:52)
[2016-05-27 10:20] LABS: INR 1.36 (0.9-1.15)
[2016-05-27] MEDS ORDERED: TPN PER PHARMACY 0 ML IV SCH (11:30)
[2016-05-27 11:51] LABS: Phosphorus 2.2 mg/dL (2.5-4.90)
[2016-05-27] MEDS: SODIUM CHLORIDE 0.9% 1,000 ML IV SCH (12:00)
[2016-05-27] MEDS ORDERED: LIDOCAINE 1% HCL (LOCAL ANESTH.) INJ 20ML MDV ID ONE (14:15)
[2016-05-27] MEDS: TAMSULOSIN HYDROCHLORIDE 0.4 MG CAP PO SCH (17:32)
[2016-05-27] MEDS ORDERED: CLINIMIX PER PHARMACY IV NR ×7 (20:00)
[2016-05-27] MEDS: SODIUM CHLOR 0.9% PF (SALINE LOCK) 10ML VIAL IV SCH (21:33)
[2016-05-28] VITALS (47 sets, daily range): BP systolic 95–123; BP diastolic 51–70
[2016-05-28] MEDS: InsuLIN REG 1unit/0.01ml Soln (100units/ml) SC SCH ×6 (03:42→23:29)
[2016-05-28] MEDS: ACCU-CHEK COMFORT CURVE STRIP VI SCH ×6 (03:42→23:28)
[2016-05-28 04:10] LABS: Basophils # (auto) 0 uL; Basophils % (auto) 0.1 % (0.0-2.0); Eosinophils # (auto) 0.1 uL; Eosinophils % (auto) 0.5 % (0.0-7.0); Hematocrit 29.1 % (41.0-53.0); Hemoglobin 9.7 g/dL (13.5-17.5); Lymphocytes # (auto) 1.7 uL; Lymphocytes % (auto) 11.3 % (10.0-50.0); Mean Corpuscular Hemoglobin 28.7 pg (28.0-32.0); Mean Corpuscular Hgb Conc. 33.2 g/dL (32.0-36.0); Mean Corpuscular Volume 86.4 fL (80.0-100.0); Mean Platelet Volume 9.3 fL (7.4-10.4); Monocytes # (auto) 1.3 uL; Monocytes % (auto) 8.9 % (0.0-12.0); Neutrophils # (auto) 11.9 uL; Neutrophils % (auto) 79.2 % (37.0-80.0); Platelet Count (auto) 140 10^3/uL (140-450); Red Cell Distribution Width 16.8 % (11.6-16.0)
[2016-05-28 04:22] LABS: Albumin 2.7 g/dL (3.4-5.0); BUN/Creatinine Ratio 42.7; Calcium 6.9 mg/dL (8.5-10.1); Potassium 4.8 mmol/L (3.5-5.1)
[2016-05-28 04:24] LABS: Bilirubin, Total 2.6 mg/dL (0.2-1.0); Total Protein 5.3 g/dL (6.4-8.2)
[2016-05-28 04:44] LABS: Magnesium 2.7 mg/dL (1.6-2.6); Phosphorus 2.1 mg/dL (2.5-4.90)
[2016-05-28] MEDS: glipiZIDE 5 MG TAB PO SCH ×2 (06:23→17:12)
[2016-05-28] MEDS: INSULIN DETEMIR(LEVEMIR) 1unit/0.01ml Soln (100units/ml) SC SCH ×2 (06:28→21:50)
[2016-05-28] MEDS: IPRATROPIUM BROM 0.5 MG/2.5ML INH SOL NEB SCH ×4 (07:12→22:37)
[2016-05-28] MEDS ORDERED: SODIUM CHLORIDE 0.9% 1,000 ML IV SCH (08:37)
[2016-05-28] MEDS: Boost Glucose Control 8 Ounces PO SCH ×3 (08:38→19:25)
[2016-05-28] MEDS: METOCLOPRAMIDE HCL 5MG/ml INJ 2ml VIAL IV PRN ×2 (08:38→19:54)
[2016-05-28] MEDS ORDERED: SODIUM PHOSPHATES 20 MEQ in SODIUM CHL 0.9% 100 ML IV ONE (08:45)
[2016-05-28] MEDS ORDERED: CALCIUM GLUC 4.65 MEQ/10ML 4.65 MEQ in SODIUM CHL 0.9% 50 ML IV ONE (08:45)
[2016-05-28] MEDS: ASPirin 81 mg TAB PO SCH (11:00)
[2016-05-28] MEDS: PANTOPRAZOLE SODIUM 40 MG/10 ML VIAL IV SCH (11:00)
[2016-05-28] MEDS: SODIUM CHLOR 0.9% PF (SALINE LOCK) 10ML VIAL IV SCH ×2 (11:00→21:48)
[2016-05-28] MEDS: DOCUSATE SOD 100 MG CAP PO SCH ×2 (11:00→21:48)
[2016-05-28] MEDS: METOPROLOL SUCCINATE XL 50 MG TAB PO SCH (11:00)
[2016-05-28] MEDS: CHLORHEXIDINE 0.12% ORAL rinse 473ML MT SCH ×2 (11:00→21:48)
[2016-05-28] MEDS: NITROGLYCERIN 0.4MG/HR TOPICAL PATCH TD SCH (11:01)
[2016-05-28] MEDS: ASCORBIC ACID 500 MG TAB PO SCH (11:01)
[2016-05-28] MEDS ORDERED: ENOXAPARIN SOD 40 MG/0.4 ML SYRINGE SC ONE (11:45)
[2016-05-28] MEDS ORDERED: FUROSEMIDE 40 MG TAB PO ONE (11:45)
[2016-05-28] MEDS: TAMSULOSIN HYDROCHLORIDE 0.4 MG CAP PO SCH (17:12)
[2016-05-28] MEDS: OXYCODONE HCL 5MG TAB PO PRN (17:13)
[2016-05-28] MEDS ORDERED: CLINIMIX PER PHARMACY IV NR ×8 (20:00)
[2016-05-28] MEDS: diphenhdrAMINE HCL 25 MG CAP PO PRN (22:18)
[2016-05-29] VITALS (30 sets, daily range): BP systolic 96–129; BP diastolic 48–87
[2016-05-29] MEDS: IPRATROPIUM BROM 0.5 MG/2.5ML INH SOL NEB SCH ×6 (01:59→22:20)
[2016-05-29] MEDS: ACCU-CHEK COMFORT CURVE STRIP VI SCH ×5 (04:00→19:52)
[2016-05-29] MEDS: InsuLIN REG 1unit/0.01ml Soln (100units/ml) SC SCH ×5 (04:00→19:51)
[2016-05-29 04:10] LABS: Basophils # (auto) 0 uL; Eosinophils # (auto) 0.1 uL; Eosinophils % (auto) 0.5 % (0.0-7.0); Hematocrit 29.1 % (41.0-53.0); Hemoglobin 9.4 g/dL (13.5-17.5); Lymphocytes # (auto) 1.7 uL; Lymphocytes % (auto) 12.2 % (10.0-50.0); Mean Corpuscular Hemoglobin 28.1 pg (28.0-32.0); Mean Corpuscular Hgb Conc. 32.4 g/dL (32.0-36.0); Mean Corpuscular Volume 86.7 fL (80.0-100.0); Mean Platelet Volume 8.9 fL (7.4-10.4); Monocytes # (auto) 1.2 uL; Monocytes % (auto) 8.4 % (0.0-12.0); Neutrophils # (auto) 10.9 uL; Neutrophils % (auto) 78.9 % (37.0-80.0); Platelet Count (auto) 167 10^3/uL (140-450); Red Cell Distribution Width 16.6 % (11.6-16.0); White Blood Cell 13.8 10^3/uL (4.4-10.8)
[2016-05-29 04:36] LABS: Albumin 2.5 g/dL (3.4-5.0); BUN/Creatinine Ratio 41.5; Bilirubin, Total 2.2 mg/dL (0.2-1.0); Calcium 7.7 mg/dL (8.5-10.1); Magnesium 2.5 mg/dL (1.6-2.6); Phosphorus 2.6 mg/dL (2.5-4.90); Potassium 4.7 mmol/L (3.5-5.1); Total Protein 5.2 g/dL (6.4-8.2)
[2016-05-29] MEDS: OXYCODONE HCL 5MG TAB PO PRN ×2 (06:11→20:33)
[2016-05-29] MEDS: glipiZIDE 5 MG TAB PO SCH ×2 (06:33→17:56)
[2016-05-29] MEDS: INSULIN DETEMIR(LEVEMIR) 1unit/0.01ml Soln (100units/ml) SC SCH ×2 (06:34→22:07)
[2016-05-29] MEDS ORDERED: FUROSEMIDE 40 MG/4 ML VIAL IV ONE (07:45)
[2016-05-29] MEDS: Boost Glucose Control 8 Ounces PO SCH ×3 (08:11→17:57)
[2016-05-29] MEDS: CHLORHEXIDINE 0.12% ORAL rinse 473ML MT SCH ×2 (10:00→22:02)
[2016-05-29] MEDS ORDERED: FUROSEMIDE 40 MG TAB PO SCH (10:00)
[2016-05-29] MEDS: ASPirin 81 mg TAB PO SCH (10:04)
[2016-05-29] MEDS: DOCUSATE SOD 100 MG CAP PO SCH ×2 (10:04→22:00)
[2016-05-29] MEDS: PANTOPRAZOLE 40 MG TAB PO SCH (10:04)
[2016-05-29] MEDS: NITROGLYCERIN 0.4MG/HR TOPICAL PATCH TD SCH (10:04)
[2016-05-29] MEDS: SODIUM CHLOR 0.9% PF (SALINE LOCK) 10ML VIAL IV SCH ×2 (10:05→22:02)
[2016-05-29] MEDS: ENOXAPARIN SOD 40 MG/0.4 ML SYRINGE SC SCH (10:05)
[2016-05-29] MEDS: METOPROLOL SUCCINATE XL 50 MG TAB PO SCH (10:06)
[2016-05-29] MEDS ORDERED: DIGOXIN 0.125 MG TAB PO ONE (16:45)
[2016-05-29] MEDS: TAMSULOSIN HYDROCHLORIDE 0.4 MG CAP PO SCH (17:56)
[2016-05-29] MEDS: FUROSEMIDE 40 MG TAB PO SCH (17:58)
[2016-05-29] MEDS ORDERED: CLINIMIX PER PHARMACY IV NR ×8 (20:00)
[2016-05-30] VITALS (28 sets, daily range): BP systolic 94–163; BP diastolic 52–75
[2016-05-30] MEDS: OXYCODONE HCL 5MG TAB PO PRN ×2 (03:15→13:14)
[2016-05-30] MEDS: ACCU-CHEK COMFORT CURVE STRIP VI SCH ×6 (04:00→22:00)
[2016-05-30] MEDS: InsuLIN REG 1unit/0.01ml Soln (100units/ml) SC SCH ×5 (04:00→17:00)
[2016-05-30 04:25] LABS: Albumin 2.4 g/dL (3.4-5.0); BUN/Creatinine Ratio 42.6; Calcium 7.8 mg/dL (8.5-10.1); Magnesium 2.4 mg/dL (1.6-2.6); Potassium 4.2 mmol/L (3.5-5.1); Total Protein 5.3 g/dL (6.4-8.2)
[2016-05-30] MEDS: IPRATROPIUM BROM 0.5 MG/2.5ML INH SOL NEB SCH ×5 (06:13→23:09)
[2016-05-30] MEDS: FUROSEMIDE 40 MG TAB PO SCH ×2 (06:16→18:09)
[2016-05-30] MEDS: glipiZIDE 5 MG TAB PO SCH ×2 (06:38→17:20)
[2016-05-30] MEDS: INSULIN DETEMIR(LEVEMIR) 1unit/0.01ml Soln (100units/ml) SC SCH ×2 (06:39→22:00)
[2016-05-30 07:21] LABS: Basophils # (auto) 0 uL; Basophils % (auto) 0.3 % (0.0-2.0); Eosinophils # (auto) 0.3 uL; Eosinophils % (auto) 2.4 % (0.0-7.0); Hematocrit 28.5 % (41.0-53.0); Hemoglobin 9.4 g/dL (13.5-17.5); Lymphocytes # (auto) 1.6 uL; Lymphocytes % (auto) 14.3 % (10.0-50.0); Mean Corpuscular Hemoglobin 27.9 pg (28.0-32.0); Mean Corpuscular Hgb Conc. 32.8 g/dL (32.0-36.0); Mean Corpuscular Volume 84.9 fL (80.0-100.0); Monocytes # (auto) 0.9 uL; Monocytes % (auto) 8.4 % (0.0-12.0); Neutrophils # (auto) 8.4 uL; Neutrophils % (auto) 74.6 % (37.0-80.0); Platelet Count (auto) 207 10^3/uL (140-450); Red Cell Distribution Width 16.8 % (11.6-16.0); White Blood Cell 11.3 10^3/uL (4.4-10.8)
[2016-05-30] MEDS: Boost Glucose Control 8 Ounces PO SCH ×3 (08:13→18:09)
[2016-05-30] MEDS ORDERED: FUROSEMIDE 40 MG/4 ML VIAL IV ONE (08:30)
[2016-05-30] MEDS: CHLORHEXIDINE 0.12% ORAL rinse 473ML MT SCH ×2 (10:09→22:00)
[2016-05-30] MEDS: PANTOPRAZOLE 40 MG TAB PO SCH (10:09)
[2016-05-30] MEDS: DOCUSATE SOD 100 MG CAP PO SCH ×2 (10:09→22:00)
[2016-05-30] MEDS: DIGOXIN 0.125 MG TAB PO SCH (10:09)
[2016-05-30] MEDS: SODIUM CHLOR 0.9% PF (SALINE LOCK) 10ML VIAL IV SCH ×2 (10:09→22:00)
[2016-05-30] MEDS: ASPirin 81 mg TAB PO SCH (10:09)
[2016-05-30] MEDS: ENOXAPARIN SOD 40 MG/0.4 ML SYRINGE SC SCH (10:10)
[2016-05-30] MEDS: METOPROLOL SUCCINATE XL 50 MG TAB PO SCH (10:10)
[2016-05-30] MEDS: NITROGLYCERIN 0.4MG/HR TOPICAL PATCH TD SCH (10:10)
[2016-05-30] MEDS: POTASSIUM CHL 20 Meq TABLET PO SCH (10:12)
[2016-05-30] MEDS ORDERED: DEXTROSE (50%) 50ML SYRG IV PRN (11:15)
[2016-05-30] MEDS: traMADol HCL 50 MG TAB PO PRN ×2 (12:42→22:59)
[2016-05-30] MEDS: TAMSULOSIN HYDROCHLORIDE 0.4 MG CAP PO SCH (18:09)
[2016-05-30] MEDS ORDERED: InsuLIN REG 1unit/0.01ml Soln (100units/ml) SC SCH (22:00)
[2016-05-31] VITALS (31 sets, daily range): BP systolic 86–115; BP diastolic 48–79
[2016-05-31] MEDS: diphenhdrAMINE HCL 25 MG CAP PO PRN ×2 (00:26→23:54)
[2016-05-31] MEDS: IPRATROPIUM BROM 0.5 MG/2.5ML INH SOL NEB SCH ×6 (02:00→22:13)
[2016-05-31 05:35] LABS: Basophils # (auto) 0 uL; Basophils % (auto) 0.4 % (0.0-2.0); Eosinophils # (auto) 0.4 uL; Eosinophils % (auto) 4.2 % (0.0-7.0); Hematocrit 27.3 % (41.0-53.0); Hemoglobin 8.9 g/dL (13.5-17.5); Lymphocytes % (auto) 22.4 % (10.0-50.0); Mean Corpuscular Hgb Conc. 32.7 g/dL (32.0-36.0); Mean Corpuscular Volume 85.6 fL (80.0-100.0); Mean Platelet Volume 8.2 fL (7.4-10.4); Monocytes # (auto) 0.8 uL; Monocytes % (auto) 9.3 % (0.0-12.0); Neutrophils # (auto) 5.7 uL; Neutrophils % (auto) 63.7 % (37.0-80.0); Platelet Count (auto) 240 10^3/uL (140-450); Red Cell Distribution Width 16.8 % (11.6-16.0); White Blood Cell 8.9 10^3/uL (4.4-10.8)
[2016-05-31 05:53] LABS: Albumin 2.2 g/dL (3.4-5.0); BUN/Creatinine Ratio 38.3; Calcium 7.5 mg/dL (8.5-10.1)
[2016-05-31 05:55] LABS: Bilirubin, Total 1.3 mg/dL (0.2-1.0); Total Protein 5.3 g/dL (6.4-8.2)
[2016-05-31] MEDS: FUROSEMIDE 40 MG TAB PO SCH ×2 (06:00→17:33)
[2016-05-31] MEDS: ACCU-CHEK COMFORT CURVE STRIP VI SCH ×4 (06:49→22:17)
[2016-05-31] MEDS: glipiZIDE 5 MG TAB PO SCH ×2 (06:49→17:32)
[2016-05-31] MEDS: InsuLIN REG 1unit/0.01ml Soln (100units/ml) SC SCH ×3 (07:00→22:19)
[2016-05-31] MEDS: INSULIN DETEMIR(LEVEMIR) 1unit/0.01ml Soln (100units/ml) SC SCH ×2 (07:00→22:19)
[2016-05-31] MEDS ORDERED: FUROSEMIDE 40 MG/4 ML VIAL IV ONE (08:00)
[2016-05-31] MEDS ORDERED: ALBUMIN 25% 100 ML IV ONE (08:00)
[2016-05-31] MEDS: Boost Glucose Control 8 Ounces PO SCH ×3 (08:27→18:00)
[2016-05-31] MEDS: ASPirin 81 mg TAB PO SCH (09:05)
[2016-05-31] MEDS: NITROGLYCERIN 0.4MG/HR TOPICAL PATCH TD SCH (09:05)
[2016-05-31] MEDS: SODIUM CHLOR 0.9% PF (SALINE LOCK) 10ML VIAL IV SCH ×2 (09:06→22:16)
[2016-05-31] MEDS: PANTOPRAZOLE 40 MG TAB PO SCH (09:06)
[2016-05-31] MEDS: DOCUSATE SOD 100 MG CAP PO SCH ×2 (09:06→22:00)
[2016-05-31] MEDS: METOPROLOL SUCCINATE XL 50 MG TAB PO SCH (09:06)
[2016-05-31] MEDS: POTASSIUM CHL 20 Meq TABLET PO SCH (09:06)
[2016-05-31] MEDS: ENOXAPARIN SOD 40 MG/0.4 ML SYRINGE SC SCH (09:07)
[2016-05-31] MEDS: CHLORHEXIDINE 0.12% ORAL rinse 473ML MT SCH ×2 (09:07→22:16)
[2016-05-31] MEDS: DIGOXIN 0.125 MG TAB PO SCH (09:07)
[2016-05-31] MEDS ORDERED: MAGNESIUM SULFATE 1GM/100ML 100 ML IV ONE (10:00)
[2016-05-31] MEDS ORDERED: CALCIUM GLUC 4.65 MEQ/10ML 4.65 MEQ in SODIUM CHL 0.9% 50 ML IV ONE (10:00)
[2016-05-31] MEDS ORDERED: DEXTROSE (50%) 50ML SYRG IV PRN (12:00)
[2016-05-31] MEDS: traMADol HCL 50 MG TAB PO PRN ×2 (14:54→22:05)
[2016-05-31] MEDS: TAMSULOSIN HYDROCHLORIDE 0.4 MG CAP PO SCH (17:33)
[2016-06-01] VITALS (17 sets, daily range): BP systolic 95–132; BP diastolic 49–75
[2016-06-01] MEDS: IPRATROPIUM BROM 0.5 MG/2.5ML INH SOL NEB SCH ×6 (02:00→22:00)
[2016-06-01] MEDS: FUROSEMIDE 40 MG TAB PO SCH ×2 (04:34→17:52)
[2016-06-01] MEDS ORDERED: ALBUMIN 25% 50 ML IV ONE (05:00)
[2016-06-01 05:30] LABS: Basophils # (auto) 0 uL; Basophils % (auto) 0.4 % (0.0-2.0); Eosinophils # (auto) 0.3 uL; Eosinophils % (auto) 3.4 % (0.0-7.0); Hematocrit 27.7 % (41.0-53.0); Lymphocytes # (auto) 2.4 uL; Lymphocytes % (auto) 25.7 % (10.0-50.0); Mean Corpuscular Hemoglobin 27.9 pg (28.0-32.0); Mean Corpuscular Hgb Conc. 32.4 g/dL (32.0-36.0); Mean Corpuscular Volume 86.1 fL (80.0-100.0); Mean Platelet Volume 8.1 fL (7.4-10.4); Monocytes # (auto) 0.9 uL; Monocytes % (auto) 9.4 % (0.0-12.0); Neutrophils # (auto) 5.6 uL; Neutrophils % (auto) 61.1 % (37.0-80.0); Platelet Count (auto) 276 10^3/uL (140-450); Red Cell Distribution Width 16.9 % (11.6-16.0); White Blood Cell 9.2 10^3/uL (4.4-10.8)
[2016-06-01] MEDS: InsuLIN REG 1unit/0.01ml Soln (100units/ml) SC SCH ×4 (05:42→22:51)
[2016-06-01] MEDS: ACCU-CHEK COMFORT CURVE STRIP VI SCH ×4 (05:42→22:00)
[2016-06-01 05:54] LABS: Albumin 2.6 g/dL (3.4-5.0); BUN/Creatinine Ratio 33.3; Bilirubin, Total 1.3 mg/dL (0.2-1.0); Potassium 4.3 mmol/L (3.5-5.1); Total Protein 5.6 g/dL (6.4-8.2)
[2016-06-01] MEDS ORDERED: FUROSEMIDE 40 MG/4 ML VIAL IV SCH (06:00)
[2016-06-01] MEDS: INSULIN DETEMIR(LEVEMIR) 1unit/0.01ml Soln (100units/ml) SC SCH ×2 (06:58→22:50)
[2016-06-01] MEDS: Boost Glucose Control 8 Ounces PO SCH ×3 (08:00→17:51)
[2016-06-01] MEDS: METOPROLOL SUCCINATE XL 50 MG TAB PO SCH (09:43)
[2016-06-01] MEDS: DIGOXIN 0.125 MG TAB PO SCH (09:44)
[2016-06-01] MEDS: POTASSIUM CHL 20 Meq TABLET PO SCH (09:51)
[2016-06-01] MEDS: PANTOPRAZOLE 40 MG TAB PO SCH (09:51)
[2016-06-01] MEDS: ASPirin 81 mg TAB PO SCH (09:52)
[2016-06-01] MEDS: SODIUM CHLOR 0.9% PF (SALINE LOCK) 10ML VIAL IV SCH ×2 (09:52→22:33)
[2016-06-01] MEDS: DOCUSATE SOD 100 MG CAP PO SCH ×2 (09:52→22:00)
[2016-06-01] MEDS: ENOXAPARIN SOD 40 MG/0.4 ML SYRINGE SC SCH (09:52)
[2016-06-01] MEDS: NITROGLYCERIN 0.4MG/HR TOPICAL PATCH TD SCH (09:53)
[2016-06-01] MEDS: CHLORHEXIDINE 0.12% ORAL rinse 473ML MT SCH ×2 (09:53→22:00)
[2016-06-01] MEDS: traMADol HCL 50 MG TAB PO PRN (16:08)
[2016-06-01] MEDS: glipiZIDE 5 MG TAB PO SCH (17:52)
[2016-06-01] MEDS: TAMSULOSIN HYDROCHLORIDE 0.4 MG CAP PO SCH (17:52)
[2016-06-02] VITALS (7 sets, daily range): BP systolic 102–111; BP diastolic 42–72
[2016-06-02] MEDS: traMADol HCL 50 MG TAB PO PRN (02:38)
[2016-06-02] MEDS: diphenhdrAMINE HCL 25 MG CAP PO PRN (03:13)
[2016-06-02] MEDS: IPRATROPIUM BROM 0.5 MG/2.5ML INH SOL NEB SCH ×3 (03:19→09:55)
[2016-06-02] MEDS: glipiZIDE 5 MG TAB PO SCH ×2 (06:52→17:00)
[2016-06-02] MEDS: INSULIN DETEMIR(LEVEMIR) 1unit/0.01ml Soln (100units/ml) SC SCH (06:54)
[2016-06-02] MEDS: InsuLIN REG 1unit/0.01ml Soln (100units/ml) SC SCH ×3 (06:55→17:00)
[2016-06-02] MEDS: FUROSEMIDE 40 MG TAB PO SCH (06:55)
[2016-06-02] MEDS: ACCU-CHEK COMFORT CURVE STRIP VI SCH ×3 (06:56→17:00)
[2016-06-02 07:29] LABS: Basophils # (auto) 0 uL; Basophils % (auto) 0.4 % (0.0-2.0); Eosinophils # (auto) 0.2 uL; Eosinophils % (auto) 1.9 % (0.0-7.0); Hemoglobin 9.2 g/dL (13.5-17.5); Lymphocytes # (auto) 1.8 uL; Lymphocytes % (auto) 17.3 % (10.0-50.0); Mean Corpuscular Hemoglobin 27.9 pg (28.0-32.0); Mean Corpuscular Volume 84.8 fL (80.0-100.0); Mean Platelet Volume 7.8 fL (7.4-10.4); Monocytes # (auto) 0.8 uL; Monocytes % (auto) 7.7 % (0.0-12.0); Neutrophils # (auto) 7.6 uL; Neutrophils % (auto) 72.7 % (37.0-80.0); Platelet Count (auto) 337 10^3/uL (140-450); Red Cell Distribution Width 17.3 % (11.6-16.0); White Blood Cell 10.4 10^3/uL (4.4-10.8)
[2016-06-02 07:50] LABS: Albumin 2.6 g/dL (3.4-5.0); BUN/Creatinine Ratio 27.3; Calcium 8.2 mg/dL (8.5-10.1); Potassium 4.2 mmol/L (3.5-5.1)
[2016-06-02 07:53] LABS: Bilirubin, Total 1.5 mg/dL (0.2-1.0); Total Protein 5.9 g/dL (6.4-8.2)
[2016-06-02] MEDS: Boost Glucose Control 8 Ounces PO SCH ×2 (08:00→12:00)
[2016-06-02] MEDS: DOCUSATE SOD 100 MG CAP PO SCH (10:00)
[2016-06-02] MEDS: CHLORHEXIDINE 0.12% ORAL rinse 473ML MT SCH (10:00)
[2016-06-02] MEDS: SODIUM CHLOR 0.9% PF (SALINE LOCK) 10ML VIAL IV SCH (10:34)
[2016-06-02] MEDS: POTASSIUM CHL 20 Meq TABLET PO SCH (10:35)
[2016-06-02] MEDS: ASPirin 81 mg TAB PO SCH (10:35)
[2016-06-02] MEDS: DIGOXIN 0.125 MG TAB PO SCH (10:36)
[2016-06-02] MEDS: PANTOPRAZOLE 40 MG TAB PO SCH (10:36)
[2016-06-02] MEDS: METOPROLOL SUCCINATE XL 50 MG TAB PO SCH (10:38)
[2016-06-02] MEDS: ENOXAPARIN SOD 40 MG/0.4 ML SYRINGE SC SCH (10:38)
[2016-06-02] MEDS: NITROGLYCERIN 0.4MG/HR TOPICAL PATCH TD SCH (10:47)
== END 2016-06-02 17:15 | disposition home or self-care (01) | DRG 235 ==
LOC: SUR 06:16 → ICU WEST 06:17 → DOU IN ICU 06-01 15:40
PROVIDERS: ADMIT Specialist; ATTEND Family Medicine
PROC: 021309W Bypass Coronary Artery, Four or More Arteries from Aorta with Autologous Venous Tissue, Open Approach (ICD-10-PCS; 2016-05-22)
PROC: 06BQ4ZZ Excision of Left Saphenous Vein, Percutaneous Endoscopic Approach (ICD-10-PCS; 2016-05-22)
PROC: 5A1221Z Performance of Cardiac Output, Continuous (ICD-10-PCS; 2016-05-22)
PROC: 3E0336Z Introduction of Nutritional Substance into Peripheral Vein, Percutaneous Approach (ICD-10-PCS; 2016-05-22)
PROC: 02100Z9 Bypass Coronary Artery, One Artery from Left Internal Mammary, Open Approach (ICD-10-PCS; principal; 2016-05-22 07:52)
PROC: 5A09557 Assistance with Respiratory Ventilation, Greater than 96 Consecutive Hours, Continuous Positive Airway Pressure (ICD-10-PCS; 2016-05-23)
PROC: 30233N1 Transfusion of Nonautologous Red Blood Cells into Peripheral Vein, Percutaneous Approach (ICD-10-PCS; 2016-05-24)
PROC: 0JH606Z Insertion of Pacemaker, Dual Chamber into Chest Subcutaneous Tissue and Fascia, Open Approach (ICD-10-PCS; 2016-05-25)
PROC: 02H63JZ Insertion of Pacemaker Lead into Right Atrium, Percutaneous Approach (ICD-10-PCS; 2016-05-25)
PROC: 02HK3JZ Insertion of Pacemaker Lead into Right Ventricle, Percutaneous Approach (ICD-10-PCS; 2016-05-25)
PROC: 02HV33Z Insertion of Infusion Device into Superior Vena Cava, Percutaneous Approach (ICD-10-PCS; 2016-05-27)
DX: I25.110 Atherosclerotic heart disease of native coronary artery with unstable angina pectoris (principal); I50.33 Acute on chronic diastolic (congestive) heart failure; J18.9 Pneumonia, unspecified organism; E46 Unspecified protein-calorie malnutrition; J44.0 Chronic obstructive pulmonary disease with (acute) lower respiratory infection; N17.9 Acute kidney failure, unspecified; I49.5 Sick sinus syndrome; I45.10 Unspecified right bundle-branch block; E66.01 Morbid (severe) obesity due to excess calories; I71.4 Abdominal aortic aneurysm, without rupture; E11.65 Type 2 diabetes mellitus with hyperglycemia; I44.30 Unspecified atrioventricular block; I11.0 Hypertensive heart disease with heart failure; Z86.73 Personal history of transient ischemic attack (TIA), and cerebral infarction without residual deficits; Z95.1 Presence of aortocoronary bypass graft; Z87.891 Personal history of nicotine dependence; Z98.84 Bariatric surgery status; Z88.7 Allergy status to serum and vaccine; Z79.899 Other long term (current) drug therapy; Z79.82 Long term (current) use of aspirin; Z68.30 Body mass index [BMI] 30.0-30.9, adult
CPT/HCPCS: 36415; 36569; 36600; 71010; 74020; 76705; 80048; 80053; 80162; 80329; 81001; 82040; 82805; 82962; 83735; 84100; 84132; 84443; 84478; 85025; 85610; 85730; 86850; 86900; 86901; 86920; 87070; 87081; 87205; 93005; 93306; 94002; 94003; 94640; 94660; 97001; 99152; C1751; C1768; C1785; C9113; J0131; J0153; J0171; J0330; J0690; J1100; J1642; J1644; J1815; J2250; J2405; J2440; J2704; J2720; J3480; J3490; J7060

== ENCOUNTER → 2016-06-26 | Outpatient (CLI) | payer MEDICARE, OTHER ==
[~2016-06-26] MED LIST changes: -INSUINJ IJ; +LISI-646 PO; +METF-316 PO; -METO-169 PO; +METO25TA5 PO; -NIAC500C3 OR; +NIAC500C3 PO; +OXYB10TA13 PO
== END | disposition home or self-care (01) ==
LOC: LAB 15:43
PROVIDERS: ATTEND Internal Medicine Cardiovascular Disease
DX: I25.10 Atherosclerotic heart disease of native coronary artery without angina pectoris (principal)
CPT/HCPCS: 36415; 80162

== ENCOUNTER → 2016-07-03 | Outpatient (CLI) | payer MEDICARE, OTHER ==
[2016-07-03 07:53] LABS: Albumin 3.3 g/dL (3.4-5.0); BUN/Creatinine Ratio 12.6; Bilirubin, Total 0.9 mg/dL (0.2-1.0); Potassium 3.9 mmol/L (3.5-5.1); Total Protein 7.6 g/dL (6.4-8.2)
== END | disposition home or self-care (01) ==
LOC: LAB 06:29
PROVIDERS: ATTEND Internal Medicine Cardiovascular Disease
DX: I20.9 Angina pectoris, unspecified (principal)
CPT/HCPCS: 36415; 80053; 80061; 80162

== ENCOUNTER → 2016-07-25 | Outpatient (CLI) | payer MEDICARE, OTHER ==
[~2016-07-25] MED LIST changes: +INSLISPI SC; +INSUINJ IJ; +METF-312 PO; +METO-169 PO; +NIAC500C3 OR; +OXYB15TA12 PO
== END | disposition home or self-care (01) ==
LOC: Rad HDHVI 14:49
PROVIDERS: ATTEND Internal Medicine Cardiovascular Disease
DX: R06.02 Shortness of breath (principal); R42 Dizziness and giddiness
CPT/HCPCS: 93926

== ENCOUNTER → 2016-10-27 | Outpatient (CLI) | payer MEDICARE, OTHER ==
[~2016-10-27] MED LIST changes: -INSLISPI SC; -INSUINJ IJ; -METF-312 PO; -METF-316 PO; +METF-372 PO; -METO-169 PO; -NIAC500C3 OR; -OXYB15TA12 PO
[2016-10-27 09:54] LABS: Urine RBC None Seen /hpf (0 - 3)
[2016-10-27 10:14] LABS: Albumin 3.6 g/dL (3.4-5.0); BUN/Creatinine Ratio 18.6; Calcium 9.4 mg/dL (8.5-10.1); Potassium 4.8 mmol/L (3.5-5.1)
[2016-10-27 10:15] LABS: Basophils # (auto) 0.1 uL; Basophils % (auto) 0.8 % (0.0-2.0); CONDITION Y; DEFINITIVE SEE PRINTOUT; Eosinophils # (auto) 0.3 uL; Eosinophils % (auto) 3.9 % (0.0-7.0); Hematocrit 40.1 % (41.0-53.0); Hemoglobin 13.2 g/dL (13.5-17.5); Lymphocytes # (auto) 2.9 uL; Lymphocytes % (auto) 37.8 % (10.0-50.0); Mean Corpuscular Hemoglobin 26.5 pg (28.0-32.0); Mean Corpuscular Hgb Conc. 32.8 g/dL (32.0-36.0); Mean Corpuscular Volume 80.7 fL (80.0-100.0); Mean Platelet Volume 8.1 fL (7.4-10.4); Monocytes # (auto) 0.6 uL; Monocytes % (auto) 8.3 % (0.0-12.0); Neutrophils # (auto) 3.7 uL; Neutrophils % (auto) 49.2 % (37.0-80.0); Platelet Count (auto) 324 10^3/uL (140-450); Red Cell Distribution Width 19.4 % (11.6-16.0); White Blood Cell 7.6 10^3/uL (4.4-10.8)
[2016-10-27 10:16] LABS: Bilirubin, Total 0.8 mg/dL (0.2-1.0); Total Protein 7.4 g/dL (6.4-8.2)
[2016-10-27 10:32] LABS: Anisocytosis Slight; Hypochromia Slight; Platelet Estimate Adequate; Urine Bilirubin Negative (Negative); Urine Blood Negative /uL (Negative); Urine Color Yellow (Yellow); Urine Glucose Normal (Normal); Urine Ketone Negative (Negative); Urine Nitrite Negative (Negative); Urine Urobilinogen Normal (Negative); Urine pH 5.5 (5.0-8.0)
== END | disposition home or self-care (01) ==
LOC: LAB 09:00
PROVIDERS: ATTEND Internal Medicine
DX: N39.0 Urinary tract infection, site not specified (principal); E11.9 Type 2 diabetes mellitus without complications; I11.0 Hypertensive heart disease with heart failure; I50.33 Acute on chronic diastolic (congestive) heart failure; Z98.61 Coronary angioplasty status
CPT/HCPCS: 36415; 80053; 81001; 83036; 84443; 85025

== ENCOUNTER → 2017-02-27 | Outpatient (CLI) | payer MEDICARE, OTHER ==
[2017-02-27 11:09] LABS: BUN/Creatinine Ratio 17.3; Calcium 9.8 mg/dL (8.5-10.1); Potassium 4.9 mmol/L (3.5-5.1)
[2017-02-27 11:32] LABS: B-Type Natriuretic Peptide 101.25 pg/mL (0-100)
[2017-02-27 11:35] LABS: Temperature: 23.5 C (20.0-25.0)
== END | disposition home or self-care (01) ==
LOC: LAB 10:26
PROVIDERS: ATTEND Internal Medicine Cardiovascular Disease
DX: I11.0 Hypertensive heart disease with heart failure (principal); I50.9 Heart failure, unspecified; Z95.0 Presence of cardiac pacemaker
CPT/HCPCS: 36415; 80048; 83880

== ENCOUNTER → 2017-04-23 | Outpatient (CLI) | payer MEDICARE, OTHER | END | disposition home or self-care (01) | LOC: LAB 13:12 | PROVIDERS: ATTEND Urology | DX: C61 Malignant neoplasm of prostate (principal) | CPT/HCPCS: 84153 ==

== ENCOUNTER → 2017-06-22 | Outpatient (CLI) | payer MEDICARE ==
[2017-06-22 10:54] LABS: Basophils # (auto) 0 uL; Basophils % (auto) 0.5 % (0.0-2.0); Eosinophils # (auto) 0.2 uL; Eosinophils % (auto) 2.9 % (0.0-7.0); Hematocrit 41.4 % (41.0-53.0); Lymphocytes # (auto) 2.6 uL; Lymphocytes % (auto) 42.4 % (10.0-50.0); Mean Corpuscular Hemoglobin 29.6 pg (28.0-32.0); Mean Corpuscular Hgb Conc. 33.8 g/dL (32.0-36.0); Mean Corpuscular Volume 87.5 fL (80.0-100.0); Monocytes # (auto) 0.6 uL; Monocytes % (auto) 9.6 % (0.0-12.0); Neutrophils # (auto) 2.8 uL; Neutrophils % (auto) 44.6 % (37.0-80.0); Platelet Count (auto) 260 10^3/uL (140-450); Red Blood Cells 4.73 10^6/uL (4.5-5.90); White Blood Cell 6.2 10^3/uL (4.4-10.8)
[2017-06-22 11:51] LABS: Albumin 3.6 g/dL (3.4-5.0); BUN/Creatinine Ratio 13.4; Bilirubin, Total 1.1 mg/dL (0.2-1.0); Calcium 9.2 mg/dL (8.5-10.1); Potassium 4.7 mmol/L (3.5-5.1); Total Protein 7.5 g/dL (6.4-8.2)
== END | disposition home or self-care (01) ==
LOC: LAB 10:26
PROVIDERS: ATTEND Physician Assistant
DX: C61 Malignant neoplasm of prostate (principal); I42.0 Dilated cardiomyopathy; E11.65 Type 2 diabetes mellitus with hyperglycemia; I11.0 Hypertensive heart disease with heart failure; I50.22 Chronic systolic (congestive) heart failure; E78.2 Mixed hyperlipidemia; R79.89 Other specified abnormal findings of blood chemistry; J44.9 Chronic obstructive pulmonary disease, unspecified; Z86.73 Personal history of transient ischemic attack (TIA), and cerebral infarction without residual deficits; Z87.891 Personal history of nicotine dependence; Z79.899 Other long term (current) drug therapy; Z79.82 Long term (current) use of aspirin; Z95.0 Presence of cardiac pacemaker
CPT/HCPCS: 36415; 80053; 80061; 83036; 84153; 84403; 85025

== ENCOUNTER 2017-08-10 06:37 | Inpatient (IN) | payer MEDICARE ==
[~2017-08-10] VITALS: Ht 188 cm; Wt 96.7 kg
[2017-08-10 07:21] LABS: Basophils # (auto) 0.1 uL; Basophils % (auto) 0.7 % (0.0-2.0); Eosinophils # (auto) 0.2 uL; Eosinophils % (auto) 2.1 % (0.0-7.0); Hematocrit 44.3 % (41.0-53.0); Hemoglobin 14.8 g/dL (13.5-17.5); Lymphocytes # (auto) 3.9 uL; Lymphocytes % (auto) 38.6 % (10.0-50.0); Mean Corpuscular Hemoglobin 29.8 pg (28.0-32.0); Mean Corpuscular Hgb Conc. 33.5 g/dL (32.0-36.0); Monocytes % (auto) 9.7 % (0.0-12.0); Neutrophils # (auto) 4.9 uL; Neutrophils % (auto) 48.9 % (37.0-80.0); Nucleated Red Blood Cells % 0.1 %; Platelet Count (auto) 286 10^3/uL (140-450); Red Blood Cells 4.98 10^6/uL (4.5-5.90); Red Cell Distribution Width 14.1 % (11.8-14.3)
[2017-08-10 07:37] LABS: INR 0.98 (0.9-1.15); Partial Thromboplastin Time 26.3 sec (23.78-33.04); Prothrombin Time 10.5 sec (9.27-12.13)
[2017-08-10 07:56] LABS: Alanine Aminotransferase 132 U/L (16-61); Albumin 3.7 g/dL (3.4-5.0); Alkaline Phosphatase 55 U/L (45-117); Anion Gap 9 (5-15); Aspartate Aminotransferase 85 U/L (15-37); BUN/Creatinine Ratio 21.7; Bilirubin, Total 0.8 mg/dL (0.2-1.0); Blood Urea Nitrogen 23 mg/dL (7-18); Calcium 9.5 mg/dL (8.5-10.1); Carbon Dioxide 21 mmol/L (21-32); Chloride 98 mmol/L (98-107); GFR African American 88 mL/min; GFR Non-African American 72 mL/min; Glucose 214 mg/dL (74-106); Sodium 128 mmol/L (136-145); Total Protein 7.8 g/dL (6.4-8.2)
[2017-08-10 08:05] LABS: Potassium 5.9 mmol/L (3.5-5.1)
[2017-08-10] MEDS ORDERED: ALBUTEROL SULF 2.5 MG/0.5ML(0.5%) NEB SOLN NEB STA (08:07)
[2017-08-10] MEDS ORDERED: InsuLIN REG 1unit/0.01ml Soln (100units/ml) IV ONE (08:15)
[2017-08-10] MEDS ORDERED: SODIUM BICARBONATE 8.4% INJ 50ML SYRINGE IV ONE (08:15)
[2017-08-10] MEDS ORDERED: SODIUM POLYSTYRENE SULF 15GM/60ML SUSP PO ONE (08:15)
[2017-08-10] MEDS ORDERED: CALCIUM GLUC 4.65meq/50ml D5AE 50 ML IV ONE (08:15)
[2017-08-10] MEDS ORDERED: DEXTROSE (50%) 50ML SYRG IV ONE (08:15)
[2017-08-10] MEDS ORDERED: ENOXAPARIN SOD 100 MG/1 ML SYRINGE SC ONE (08:15)
[2017-08-10] MEDS ORDERED: ASPirin 325 MG TAB PO SCH (10:00)
[2017-08-10] MEDS ORDERED: NITROGLYCERIN 0.4 MG SL TAB SL PRN (10:15)
[2017-08-10] MEDS ORDERED: LABETALOL HCL 5 MG/ML ML 20ML VIAL IV PRN (10:15)
[2017-08-10] MEDS ORDERED: MORPHINE SULFATE 8mg/ml INJ SDV IV PRN ×3 (10:15)
[2017-08-10] MEDS ORDERED: TEMAZEPAM 15 MG CAP PO PRN (10:15)
[2017-08-10] MEDS ORDERED: DEXTROSE (50%) 50ML SYRG IV PRN (10:15)
[2017-08-10] MEDS ORDERED: LORazepam 0.5 MG TAB PO PRN (10:15)
[2017-08-10] MEDS ORDERED: PROMETHAZINE HCL 25 MG/ML 1ML IV PRN (10:15)
[2017-08-10] MEDS ORDERED: LACTULOSE 20Gm/30ML SOLN PO PRN (10:15)
[2017-08-10] MEDS: SODIUM CHLORIDE 0.9% 1,000 ML IV SCH ×2 (10:21→18:05)
[2017-08-10 10:47] LABS: Carcinoembryonic Antigen 4.22 ng/mL (<5.0 OR =)
[2017-08-10 10:48] LABS: Folate (Folic Acid) 23.38 ng/mL (5.38-24)
[2017-08-10 10:52] LABS: CRP High Sensitivity 0.31 mg/dL (< 0.3)
[2017-08-10] MEDS ORDERED: glipiZIDE 5 MG TAB PO ONE (11:00)
[2017-08-10] MEDS ORDERED: ENOXAPARIN SOD 40 MG/0.4 ML SYRINGE SC ONE (11:00)
[2017-08-10] MEDS ORDERED: PANTOPRAZOLE 40 MG TAB PO ONE (11:00)
[2017-08-10] MEDS ORDERED: NITROGLYCERIN 0.2MG/HR TOPICAL PATCH TD ONE (11:00)
[2017-08-10] MEDS ORDERED: LORazepam 2MG/ML-1ML VIAL IV ONE (11:30)
[2017-08-10] MEDS: ACCU-CHEK COMFORT CURVE STRIP VI SCH ×3 (11:30→21:35)
[2017-08-10] MEDS: InsuLIN REG 1unit/0.01ml Soln (100units/ml) SC SCH ×3 (11:30→21:50)
[2017-08-10 14:18] LABS: Albumin 3.4 g/dL (3.4-5.0); BUN/Creatinine Ratio 17.6; Calcium 9.3 mg/dL (8.5-10.1); Potassium 4.8 mmol/L (3.5-5.1)
[2017-08-10 14:21] LABS: Bilirubin, Total 0.8 mg/dL (0.2-1.0); Total Protein 7.5 g/dL (6.4-8.2)
[2017-08-10 14:23] LABS: Urine Bacteria NONE SEEN /hpf (None Seen); Urine Blood Negative /uL (Negative); Urine Specific Gravity 1.019 (1.001-1.035); Urine WBC <1 /hpf (0 - 3)
[2017-08-10] MEDS ORDERED: MORPHINE SULFATE 10 MG/ML INJ 1ML SDV IV PRN ×3 (15:00)
[2017-08-10 15:46] LABS: Alcohol, Urine < 3.0 mg/dL (0-5); Amphetamine Screen, Urine NEGATIVE (NEGATIVE); Barbiturate Scree,Urine NEGATIVE (NEGATIVE); Benzodiazephine Screen, Urine NEGATIVE (NEGATIVE); Cannabinoid Screen, Urine NEGATIVE (NEGATIVE); Cocaine Screen, Urine NEGATIVE (NEGATIVE); Opiate Scree,Urine NEGATIVE (NEGATIVE); Phencyclidine Screen, Urine NEGATIVE (NEGATIVE)
[2017-08-10] MEDS: glipiZIDE 5 MG TAB PO SCH (18:25)
[2017-08-10] MEDS ORDERED: IODIXANOL 320MG/ML 100ML BTL IV ONE (20:46)
[2017-08-10] MEDS: ASPIRIN-DIPYRIDAMOLE (25/200MG) CAPSULE PO SCH (21:28)
[2017-08-10] MEDS: METOPROLOL TARTRATE 25 MG TAB PO SCH (21:29)
[2017-08-10] MEDS: ATORVASTATIN 20 MG TAB PO SCH (21:29)
[2017-08-10 22:00] VITALS: BP 164/89
[2017-08-11] MEDS: SODIUM CHLORIDE 0.9% 1,000 ML IV SCH (04:40)
[2017-08-11 04:44] VITALS: BP 160/85
[2017-08-11 05:00] VITALS: BP 151/84
[2017-08-11 06:46] LABS: Albumin 3.2 g/dL (3.4-5.0); Calcium 8.7 mg/dL (8.5-10.1); Potassium 4.2 mmol/L (3.5-5.1)
[2017-08-11] MEDS: InsuLIN REG 1unit/0.01ml Soln (100units/ml) SC SCH ×4 (06:47→21:05)
[2017-08-11 06:49] LABS: BUN/Creatinine Ratio 19.1
[2017-08-11 06:51] LABS: Total Protein 7.1 g/dL (6.4-8.2)
[2017-08-11] MEDS: glipiZIDE 5 MG TAB PO SCH (06:52)
[2017-08-11] MEDS: ACCU-CHEK COMFORT CURVE STRIP VI SCH ×4 (06:54→21:06)
[2017-08-11 09:00] VITALS: BP 146/74
[2017-08-11] MEDS ORDERED: LISINOPRIL 20 MG TAB PO SCH (10:00)
[2017-08-11] MEDS ORDERED: NITROGLYCERIN 0.2MG/HR TOPICAL PATCH TD SCH (10:00)
[2017-08-11] MEDS ORDERED: OXYBUTYNIN CHLORIDE 10 MG PO SCH (10:00)
[2017-08-11] MEDS ORDERED: ASPirin 81 mg TAB PO SCH (10:00)
[2017-08-11] MEDS: ASPIRIN-DIPYRIDAMOLE (25/200MG) CAPSULE PO SCH ×2 (12:25→20:52)
[2017-08-11] MEDS: METOPROLOL TARTRATE 25 MG TAB PO SCH ×2 (12:26→21:04)
[2017-08-11] MEDS: PANTOPRAZOLE 40 MG TAB PO SCH (12:26)
[2017-08-11] MEDS: ENOXAPARIN SOD 40 MG/0.4 ML SYRINGE SC SCH (12:27)
[2017-08-11 13:00] VITALS: BP 141/80
[2017-08-11 17:49] VITALS: BP 129/69
[2017-08-11] MEDS: ATORVASTATIN 20 MG TAB PO SCH (20:52)
[2017-08-11] MEDS: INSULIN LANTUS (GLARGINE) 1 /0.01ml (100units/ml) SC SCH (21:06)
[2017-08-11 22:00] VITALS: BP 157/77
[2017-08-12 04:52] VITALS: BP 115/68
[2017-08-12 06:09] LABS: BUN/Creatinine Ratio 13.1; Calcium 8.9 mg/dL (8.5-10.1); Potassium 4.7 mmol/L (3.5-5.1)
[2017-08-12] MEDS: ACCU-CHEK COMFORT CURVE STRIP VI SCH ×4 (06:43→21:46)
[2017-08-12] MEDS: InsuLIN REG 1unit/0.01ml Soln (100units/ml) SC SCH ×4 (06:43→21:46)
[2017-08-12 09:00] VITALS: BP 115/71
[2017-08-12] MEDS: ENOXAPARIN SOD 40 MG/0.4 ML SYRINGE SC SCH (09:34)
[2017-08-12] MEDS: PANTOPRAZOLE 40 MG TAB PO SCH (09:34)
[2017-08-12] MEDS: ASPIRIN-DIPYRIDAMOLE (25/200MG) CAPSULE PO SCH ×2 (09:34→21:40)
[2017-08-12] MEDS: METOPROLOL TARTRATE 25 MG TAB PO SCH ×2 (12:21→21:41)
[2017-08-12 13:00] VITALS: BP 139/76
[2017-08-12] MEDS: OXYBUTYNIN CHL 5 MG TAB PO SCH ×2 (13:12→21:40)
[2017-08-12 17:33] VITALS: BP 134/83
[2017-08-12] MEDS: ATORVASTATIN 20 MG TAB PO SCH (21:41)
[2017-08-12] MEDS: INSULIN LANTUS (GLARGINE) 1 /0.01ml (100units/ml) SC SCH (21:47)
[2017-08-12 22:00] VITALS: BP 147/76
[2017-08-13] VITALS (7 sets, daily range): BP systolic 115–149; BP diastolic 72–84
[2017-08-13] MEDS: ACCU-CHEK COMFORT CURVE STRIP VI SCH ×3 (06:11→17:00)
[2017-08-13] MEDS: InsuLIN REG 1unit/0.01ml Soln (100units/ml) SC SCH ×3 (06:11→17:00)
[2017-08-13] MEDS ORDERED: NALOXONE HCL 0.4 MG/ML VIAL ONE (08:26)
[2017-08-13] MEDS ORDERED: FLUMAZENIL 0.1 MG/ML INJ 10ML MDV IV ONE (08:26)
[2017-08-13] MEDS ORDERED: LIDOCAINE VISCOUS 2% 15ML UD PO ONE (08:30)
[2017-08-13] MEDS ORDERED: MIDAZOLAM HCL 1MG/1ML-2 ML VIAL IV ONE (08:30)
[2017-08-13] MEDS ORDERED: fentaNYL CITRATE 100 MCG/2 ML VL IV ONE (08:30)
[2017-08-13] MEDS ORDERED: ASPIRIN-DIPYRIDAMOLE (25/200MG) CAPSULE PO ONE (11:45)
[2017-08-13] MEDS: OXYBUTYNIN CHL 5 MG TAB PO SCH (11:49)
[2017-08-13] MEDS: METOPROLOL TARTRATE 25 MG TAB PO SCH (11:53)
[2017-08-13] MEDS: PANTOPRAZOLE 40 MG TAB PO SCH (11:53)
[2017-08-13] MEDS: ENOXAPARIN SOD 40 MG/0.4 ML SYRINGE SC SCH (11:54)
[2017-08-13] MEDS ORDERED: ASPIRIN-DIPYRIDAMOLE (25/200MG) CAPSULE PO SCH (22:00)
[2017-08-13] MEDS ORDERED: INSULIN LANTUS (GLARGINE) 1 /0.01ml (100units/ml) SC SCH (22:00)
== END 2017-08-13 19:00 | disposition home or self-care (01) | DRG 65 ==
LOC: ER 06:40 → TELE 06:41 → TELE-CENTR 14:38
PROVIDERS: ADMIT Internal Medicine; ATTEND Internal Medicine
PROC: B246ZZ4 Ultrasonography of Right and Left Heart, Transesophageal (ICD-10-PCS; principal; 2017-08-13)
DX: I63.40 Cerebral infarction due to embolism of unspecified cerebral artery (principal); E87.1 Hypo-osmolality and hyponatremia; E11.65 Type 2 diabetes mellitus with hyperglycemia; E87.5 Hyperkalemia; E78.5 Hyperlipidemia, unspecified; Z95.1 Presence of aortocoronary bypass graft; F17.200 Nicotine dependence, unspecified, uncomplicated; G47.10 Hypersomnia, unspecified; G83.21 Monoplegia of upper limb affecting right dominant side; I10 Essential (primary) hypertension; I25.10 Atherosclerotic heart disease of native coronary artery without angina pectoris; I65.22 Occlusion and stenosis of left carotid artery; J32.0 Chronic maxillary sinusitis; M46.90 Unspecified inflammatory spondylopathy, site unspecified; M48.02 Spinal stenosis, cervical region; M77.9 Enthesopathy, unspecified; Z79.82 Long term (current) use of aspirin; Z79.899 Other long term (current) drug therapy; Z85.46 Personal history of malignant neoplasm of prostate; Z85.819 Personal history of malignant neoplasm of unspecified site of lip, oral cavity, and pharynx; Z86.73 Personal history of transient ischemic attack (TIA), and cerebral infarction without residual deficits; Z98.84 Bariatric surgery status
CPT/HCPCS: 36415; 70450; 70498; 70551; 71045; 72125; 76705; 80048; 80053; 80061; 80307; 81001; 82150; 82378; 82550; 82607; 82746; 82962; 83036; 83690; 84443; 84484; 85025; 85610; 85652; 85730; 86141; 86850; 86900; 86901; 93005; 93306; 93886; 94640; 96365; 96372; 96375; 99152; J0610; J1815; J2250; Q9967

== ENCOUNTER → 2017-09-11 | Outpatient (CLI) | payer MEDICARE ==
[~2017-09-11] MED LIST changes: -LISI-646 PO
== END | disposition home or self-care (01) ==
LOC: LAB 09:02
PROVIDERS: ATTEND Physician Assistant
DX: I71.4 Abdominal aortic aneurysm, without rupture (principal); I25.10 Atherosclerotic heart disease of native coronary artery without angina pectoris; E11.65 Type 2 diabetes mellitus with hyperglycemia; E78.5 Hyperlipidemia, unspecified; I10 Essential (primary) hypertension; Z79.899 Other long term (current) drug therapy
CPT/HCPCS: 36415; 82565; 84520

== ENCOUNTER → 2017-10-23 | Outpatient (CLI) | payer MEDICARE | END | disposition home or self-care (01) | LOC: Rad HDHVI 08:58 | PROVIDERS: ATTEND Internal Medicine Cardiovascular Disease | DX: I08.8 Other rheumatic multiple valve diseases (principal); I25.5 Ischemic cardiomyopathy; I63.8 Other cerebral infarction; I11.0 Hypertensive heart disease with heart failure; I50.23 Acute on chronic systolic (congestive) heart failure; E11.9 Type 2 diabetes mellitus without complications; Z87.891 Personal history of nicotine dependence | CPT/HCPCS: 93306 ==

== ENCOUNTER → 2017-10-23 | Outpatient (CLI) | payer MEDICARE | END | disposition home or self-care (01) | LOC: LAB 10:06 | PROVIDERS: ATTEND Urology | DX: C61 Malignant neoplasm of prostate (principal); R35.1 Nocturia; R32 Unspecified urinary incontinence; R35.0 Frequency of micturition; I10 Essential (primary) hypertension; E11.9 Type 2 diabetes mellitus without complications; Z86.73 Personal history of transient ischemic attack (TIA), and cerebral infarction without residual deficits | CPT/HCPCS: 84153 ==

== ENCOUNTER → 2017-12-06 | Outpatient (CLI) | payer MEDICARE ==
[~2017-12-06] MED LIST changes: -OXYB10TA13 PO; +OXYB10TA14 PO
[2017-12-06 15:56] LABS: BUN/Creatinine Ratio 17.5; Calcium 9.3 mg/dL (8.5-10.1); Potassium 4.5 mmol/L (3.5-5.1)
== END | disposition home or self-care (01) ==
LOC: LAB 14:18
PROVIDERS: ATTEND Internal Medicine
DX: C61 Malignant neoplasm of prostate (principal); I63.8 Other cerebral infarction; N20.0 Calculus of kidney; I25.10 Atherosclerotic heart disease of native coronary artery without angina pectoris; Z87.891 Personal history of nicotine dependence
CPT/HCPCS: 36415; 80048

== ENCOUNTER → 2018-07-15 | Outpatient (CLI) | payer MEDICARE ==
[~2018-07-15] VITALS: Ht 188 cm; Wt 97.5 kg
[~2018-07-15] MED LIST changes: +ADENOSINE 82 MG in GIVE UN-DILUTED 0 ML IV ONE; +ADENOSINE 90 MG/30 ML INJ IV ONE
== END | disposition home or self-care (01) ==
LOC: Rad HDHVI 08:22
PROVIDERS: ATTEND Internal Medicine Cardiovascular Disease
DX: I25.5 Ischemic cardiomyopathy (principal); E11.9 Type 2 diabetes mellitus without complications; I11.0 Hypertensive heart disease with heart failure; I50.23 Acute on chronic systolic (congestive) heart failure; R06.01 Orthopnea
CPT/HCPCS: 78452; 93005; 96374; 96375; A9500; J0153

== ENCOUNTER → 2018-12-20 | Outpatient (CLI) | payer MEDICARE ==
[~2018-12-20] MED LIST changes: -ADENOSINE 82 MG in GIVE UN-DILUTED 0 ML IV ONE; -ADENOSINE 90 MG/30 ML INJ IV ONE; -GLIP-115 PO; +GLIP5TAB12 PO; -NITR0.2D12 TD; +NITR0.2D3 TD
== END | disposition home or self-care (01) ==
LOC: Rad HDHVI 14:07
PROVIDERS: ATTEND Internal Medicine Cardiovascular Disease
DX: I08.8 Other rheumatic multiple valve diseases (principal); I11.0 Hypertensive heart disease with heart failure; I50.43 Acute on chronic combined systolic (congestive) and diastolic (congestive) heart failure; I25.5 Ischemic cardiomyopathy
CPT/HCPCS: 93306

== ENCOUNTER → 2019-02-17 | Outpatient (CLI) | payer MEDICARE ==
[~2019-02-17] MED LIST changes: +ACAR50TA9 PO; +ATOR40TA52 PO; +CLOP75TA28 PO; +DIGO0.1262 PO; +DULA0.5I SC; +DULO60CA PO; +FENO1TAB PO; +FURO20TA3 PO; +INSLANTI SC; +LISI-275 PO; +LORA1TAB12 PO; +METF-929 PO; +METO-158 PO; +PREG100C PO; +SPIR25TA8 PO; +TAM04C PO
[2019-02-17 10:17] VITALS: BP 119/70
[2019-02-17 10:32] VITALS: BP 119/63
--- NOTE | 2019-02-17 10:32 | NUR ---
Pre-Op Discharge Summary: See e-MAR for any medications given for this visit. Pre-op orders received and carried out per MD of EKG, LABS and chest xrays. Patient given a copy of EKG with instructions to go to [facility] out patient for further follow up care.
[2019-02-17 12:22] LABS: Basophils # (auto) 0 uL; Basophils % (auto) 0.7 % (0.0-2.0); Eosinophils # (auto) 0.3 uL; Eosinophils % (auto) 4.2 % (0.0-7.0); Hematocrit 43.9 % (41.0-53.0); Hemoglobin 14.5 g/dL (13.5-17.5); Lymphocytes % (auto) 40.4 % (10.0-50.0); Mean Corpuscular Hemoglobin 28.5 pg (28.0-32.0); Mean Corpuscular Hgb Conc. 33.2 g/dL (32.0-36.0); Mean Corpuscular Volume 85.9 fL (80.0-100.0); Monocytes # (auto) 0.5 uL; Monocytes % (auto) 7.5 % (0.0-12.0); Neutrophils # (auto) 3.5 uL; Neutrophils % (auto) 47.2 % (37.0-80.0); Platelet Count (auto) 233 10^3/uL (140-450); Red Blood Cells 5.11 10^6/uL (4.5-5.90); White Blood Cell 7.4 10^3/uL (4.4-10.8)
[2019-02-17 12:31] LABS: Calcium 9.5 mg/dL (8.5-10.1); Potassium 4.3 mmol/L (3.5-5.1)
[2019-02-17 12:34] LABS: BUN/Creatinine Ratio 13.8
[2019-02-17 12:36] LABS: INR 1.06 (0.9-1.15); Partial Thromboplastin Time 26.1 sec (23.64-32.05)
== END | disposition home or self-care (01) ==
LOC: Rad HDHVI 09:59
PROVIDERS: ATTEND Internal Medicine Cardiovascular Disease
DX: Z01.812 Encounter for preprocedural laboratory examination (principal); I70.0 Atherosclerosis of aorta; I11.0 Hypertensive heart disease with heart failure; I50.9 Heart failure, unspecified; R55 Syncope and collapse; Z95.1 Presence of aortocoronary bypass graft; Z95.0 Presence of cardiac pacemaker
CPT/HCPCS: 36415; 71046; 80048; 85025; 85610; 85730; 93005; G0463

== ENCOUNTER → 2019-03-10 | Outpatient (CLI) | payer MEDICARE ==
[~2019-03-10] MED LIST changes: +ACAR50TA PO; -ACAR50TA9 PO; -ASPI325T4 PO; +DIGO0.12 PO; -DIGO0.1262 PO; -GLIP5TAB12 PO; -METF-372 PO; -METO25TA5 PO; -NIAC500C3 PO; -NITR0.2D3 TD; -NITR400A5 TL; -OXYB10TA14 PO; -PRAV20TA3 PO
[2019-03-10 12:07] LABS: Basophils # (auto) 0.1 uL; Basophils % (auto) 0.9 % (0.0-2.0); Eosinophils # (auto) 0.3 uL; Eosinophils % (auto) 3.6 % (0.0-7.0); Hematocrit 43.1 % (41.0-53.0); Hemoglobin 14.7 g/dL (13.5-17.5); Lymphocytes # (auto) 3.5 uL; Lymphocytes % (auto) 41.6 % (10.0-50.0); Mean Corpuscular Hemoglobin 29.1 pg (28.0-32.0); Mean Corpuscular Hgb Conc. 34.2 g/dL (32.0-36.0); Mean Corpuscular Volume 85.2 fL (80.0-100.0); Monocytes # (auto) 0.7 uL; Monocytes % (auto) 8.3 % (0.0-12.0); Neutrophils # (auto) 3.8 uL; Neutrophils % (auto) 45.6 % (37.0-80.0); Nucleated Red Blood Cells % 0.1 %; Platelet Count (auto) 280 10^3/uL (140-450); Red Blood Cells 5.06 10^6/uL (4.5-5.90); Red Cell Distribution Width 16.1 % (11.8-14.3); White Blood Cell 8.3 10^3/uL (4.4-10.8)
[2019-03-10 12:09] LABS: BUN/Creatinine Ratio 16.5; Calcium 10.1 mg/dL (8.5-10.1); Potassium 4.3 mmol/L (3.5-5.1)
[2019-03-10 12:18] LABS: INR 1.07 (0.9-1.15)
== END | disposition home or self-care (01) ==
LOC: Rad HDHVI 09:53
PROVIDERS: ATTEND Internal Medicine Cardiovascular Disease
DX: Z01.812 Encounter for preprocedural laboratory examination (principal); I10 Essential (primary) hypertension; E11.9 Type 2 diabetes mellitus without complications; G45.9 Transient cerebral ischemic attack, unspecified; Z95.818 Presence of other cardiac implants and grafts
CPT/HCPCS: 36415; 80048; 85025; 85610; 85730

== ENCOUNTER 2019-03-13 07:18 | Day surgery (SDC) | payer MEDICARE ==
[~2019-03-13] VITALS: Ht 188 cm; Wt 95.3 kg
[~2019-03-13 07:18] MED LIST changes: -FENO1TAB PO; +FENO48TA12 PO
[2019-03-13] MEDS ORDERED: LIDOCAINE 2%HCL (LOCAL ANESTH.) INJ 20ML MDV ONE (07:53)
[2019-03-13] MEDS ORDERED: IOHEXOL 350 MG/ML 100ML IJ ONE ×2 (07:53→09:51)
[2019-03-13] MEDS ORDERED: SODIUM CHL 0.9% 0 ML ONE (09:02)
[2019-03-13] MEDS ORDERED: ANGIOMAX 250 MG VIAL IV ONE (09:02)
[2019-03-13] MEDS ORDERED: fentaNYL CITRATE 100 MCG/2 ML VL ONE (09:02)
[2019-03-13] MEDS ORDERED: MIDAZOLAM HCL 1MG/1ML-2 ML VIAL ONE (09:02)
[2019-03-13] MEDS ORDERED: ACETAMINOPHEN 500 MG TAB PO PRN (11:00)
[2019-03-13] MEDS ORDERED: ONDANSETRON HCL 4 MG/2 ML VIAL IV PRN (11:00)
== END 2019-03-13 13:13 | disposition home or self-care (01) ==
LOC: CATH 07:18
PROVIDERS: ATTEND Internal Medicine Cardiovascular Disease
DX: I25.10 Atherosclerotic heart disease of native coronary artery without angina pectoris (principal); I49.5 Sick sinus syndrome; I11.0 Hypertensive heart disease with heart failure; I50.9 Heart failure, unspecified; I71.4 Abdominal aortic aneurysm, without rupture; G47.33 Obstructive sleep apnea (adult) (pediatric); J44.9 Chronic obstructive pulmonary disease, unspecified; E11.40 Type 2 diabetes mellitus with diabetic neuropathy, unspecified; E11.21 Type 2 diabetes mellitus with diabetic nephropathy; E78.5 Hyperlipidemia, unspecified; Z95.0 Presence of cardiac pacemaker; Z95.1 Presence of aortocoronary bypass graft; Z95.5 Presence of coronary angioplasty implant and graft; Z87.891 Personal history of nicotine dependence; Z79.84 Long term (current) use of oral hypoglycemic drugs; Z79.899 Other long term (current) drug therapy; Z88.7 Allergy status to serum and vaccine
CPT/HCPCS: 93459; C1894; J1644; J2250; J3010; Q9967; 99152; 99153